=== PATIENT | female | born 1965 | race Caucasian/White ===

== ENCOUNTER 2023-05-09 14:28 | Outpatient (RCR) | payer OTHER, SELFPAY | END 2023-06-04 16:16 | disposition home or self-care (01) | LOC: PT 14:28 | PROVIDERS: PCP Physician Assistant | DX: M19.011 Primary osteoarthritis, right shoulder (principal) | CPT/HCPCS: 97010; 97014; 97110; 97140; 97162 ==

== ENCOUNTER 2023-07-30 07:12 | Outpatient (RCR) | payer OTHER, SELFPAY | END 2023-08-28 16:10 | disposition home or self-care (01) | LOC: PT 07:12 | PROVIDERS: PCP Physician Assistant | DX: M25.512 Pain in left shoulder (principal); G89.29 Other chronic pain | CPT/HCPCS: 97110; 97140; 97162 ==

== ENCOUNTER 2023-09-13 14:27 | Outpatient (OUT) | payer OTHER, SELFPAY ==
[2023-09-13 14:49] LABS: Basophils Absolute Auto 0.1 10^3/uL (0.0-0.1); Basophils Percent Auto 0.8 % (0.2-2.0); Eosinophils Absolute Auto 0.1 10^3/uL (0.0-0.7); Eosinophils Percent Auto 1.1 % (0.9-7.0); Hematocrit 42.2 % (36.0-48.0); Immature Granulocytes Abs Auto 0.07 10^3/uL (0.00-0.03); Immature Granulocytes Pct Auto 0.6 % (0.0-0.5); Lymphocytes Absolute Auto 2.7 10^3/uL (1.2-3.8); Lymphocytes Percent Auto 24.9 % (20.5-60.0); Mean Corpuscular HGB Conc 33.2 g/dL (29.9-35.2); Mean Corpuscular Hemoglobin 29.8 pg (26.7-34.0); Mean Corpuscular Volume 89.8 fL (81.0-99.0); Monocytes Absolute Auto 0.7 10^3/uL (0.3-0.8); Monocytes Percent Auto 6.1 % (1.7-12.0); Neutrophils Absolute Auto 7.3 10^3/uL (1.4-6.5); Neutrophils Percent Auto 66.5 % (43.0-75.0); Platelet Count 327 10^3/uL (150-450); Red Cell Distribution Width 11.8 % (11.0-15.0); White Blood Count 10.9 10^3/uL (4.0-11.0)
[2023-09-13 15:36] LABS: Alanine Aminotransferase 46 U/L (14-59); Albumin Globulin Ratio 1.1; Albumin Level 3.9 g/dL (3.4-5.0); Alkaline Phosphatase 68 U/L (46-116); Anion Gap 15.3; Aspartate Amino Transferase 24 U/L (15-37); BUN Creatinine Ratio 18.7; Bilirubin Total 0.6 mg/dL (0.2-1.0); Calcium 8.8 mg/dL (8.5-10.1); Carbon Dioxide 26.5 mmol/L (21.0-32.0); Chloride 103 mmol/L (98-107); Chol HDL Ratio 3.8; Cholesterol 207 mg/dL (<=200); Estimated GFR (African America >60 (>=60); Estimated GFR (Non-African Ame >60 (>=60); Globulin 3.6 g/dL; Glucose 106 mg/dL (74-106); HDL Cholesterol 54 mg/dL (40-60); Potassium 3.8 mmol/L (3.5-5.1); Sodium 141 mmol/L (136-145); Total Protein 7.5 g/dL (6.4-8.2); Triglycerides 113 mg/dL (<=150); VLDL CHOLESTEROL 22.6 mg/dL
[2023-09-13 15:37] LABS: Estimated Average Glucose 140 mg/dL; Glycohemoglobin A1C 6.5 % (4.5-6.2)
== END 2023-09-13 14:28 | disposition home or self-care (01) ==
LOC: LAB 14:30
DX: Z13.1 Encounter for screening for diabetes mellitus (principal); Z13.0 Encounter for screening for diseases of the blood and blood-forming organs and certain disorders involving the immune mechanism; Z13.6 Encounter for screening for cardiovascular disorders; Z13.220 Encounter for screening for lipoid disorders
CPT/HCPCS: 36415; 80053; 80061; 83036; 85025

== ENCOUNTER 2024-03-12 14:27 | Outpatient (OUT) | payer OTHER, SELFPAY ==
--- NOTE | 2024-03-12 14:35 | ECG_ITS ---
[facility] Test Date: 2024-03-12 Pat Name: FREDDIE ORELLANA Department: Room: - Gender: Female [employer]: : 1965 Requested By: JERRY MC Order Number: [id number] Reading MD: EBLLA NO Measurements Intervals [place] Rate: 72 P: -34 [place]: 152 QRS: -25 QRSD: 88 T: 151 QT: 381 QTc: 418 Interpretive Statements SINUS RHYTHM BORDERLINE LEFT AXIS DEVIATION [QRS AXIS < -20] ABNORMAL QRS-T ANGLE [QRS-T AXIS DIFFERENCE > 60] No previous ECG available for comparison Electronically Signed On 03-15-2024 10:44:09 EDT by BELLA NO
--- NOTE | 2024-03-12 15:07 | P.GSHP_ITS ---
History of Present Illness History of Present Illness Chief complaint: left ureteral stone Narrative: Patient presents for preadmission testing. The patient states she was diagnosed with a kidney stone in December after an episode of hematuria and flank pain. Patient states she still has intermittent flank pain but no other complaints with urination. Review of Systems ROS Narrative REVIEW OF SYSTEMS: Negative except as stated in HPI, ten or more systems reviewed. Constitutional: No fever , chills, weakness ENT: No sore throat or epistaxis Cardiovascular: No edema, chest pain, palpitations, or activity intolerance Respiratory: No shortness of breath, cough, or wheezing Musculoskeletal: No joint pain or swelling Gastrointestinal: No abdominal pain, constipation, diarrhea, or vomiting Genitourinary: No dysuria or hematuria Neurological: No numbness, tingling, weakness, or headache Psychiatric: No mood changes PFSH PFS Medical History (Updated 03/12/24 @ 14:54 by Julianna Cruz NP) Anxiety ?F41.9 - Anxiety disorder, unspecified (ICD-10) COVID-19 ?U07.1 - COVID-19 (ICD-10) Urinary tract infection ?N39.0 - Urinary tract infection, site not specified (ICD-10) Kidney stones ?N20.0 - Calculus of kidney (ICD-10) Osteoarthritis ?M19.90 - Unspecified osteoarthritis, unspecified site (ICD-10) Foot pain ?M79.673 - Pain in unspecified foot (ICD-10) Tear meniscus knee ?S83.209A - Unspecified tear of unspecified meniscus, current injury, unspecified knee, initial encounter (ICD-10) Irregular heart beat ?I49.9 - Cardiac arrhythmia, unspecified (ICD-10) Elevated blood pressure reading without diagnosis of hypertension ?R03.0 - Elevated blood-pressure reading, without diagnosis of hypertension (ICD-10) Hematuria ?R31.9 - Hematuria, unspecified (ICD-10) Flank pain ?R10.9 - Unspecified abdominal pain (ICD-10) Hydronephrosis ?N13.30 - Unspecified hydronephrosis (ICD-10) Ureteral stone ?N20.1 - Calculus of ureter (ICD-10) Surgical History (Updated 03/12/24 @ 14:54 by Julianna Cruz NP) History of colonoscopy ?Z98.890 - Other specified postprocedural states (ICD-10) History of cholecystectomy ?Z90.49 - Acquired absence of other specified parts of digestive tract (ICD- 10) History of bilateral oophorectomy ?Z90.722 - Acquired absence of ovaries, bilateral (ICD-10) History of hysterectomy ?Z90.710 - Acquired absence of both cervix and uterus (ICD-10) Family History (Updated 03/12/24 @ 14:54 by Julianna Cruz NP) Other Family history of diabetes mellitus Family history of hypertension Family history of myocardial infarction Family history of ovarian cancer Social History (Updated 03/12/24 @ 14:46 by Julianna Cruz NP) Within the past year, how often did you have a drink containing alcohol: never Score interpretation: A score less than 3 is consistent with normal alcohol consumption. Smoking status: Never smoker Non-prescribed substance use: denies use Previous occupational history: Delivery Highest level of school completed/degree received: high school graduate Meds Home Medications and Allergies Allergies Allergy/AdvReac Type Severity Reaction Status Date / Time sulfamethoxazole Allergy Rash Verified 03/12/24 14:45 [From Bactrim] trimethoprim [From Bactrim] Allergy Rash Verified 03/12/24 14:45 Exam Narrative Exam Narrative: Constitutional: Awake, alert, comfortable, well-appearing, nontoxic, interactive, vital signs as charted Head: Normocephalic, atraumatic Neck: Supple, normal appearance, normal range of motion, no meningeal signs, no lymphadenopathy Respiratory: No respiratory distress, breath sounds clear Cardiovascular: Regular rate and rhythm, strong and regular heart tones Abdomen: Nontender, normal bowel sounds, soft, no CVA tenderness Musculoskeletal: Normal gait, no swelling or edema Skin: No rashes or induration, no lesions, only visible skin inspected Neuro: No neurological deficits, normal sensation Psychiatric: Oriented ?3, normal affect Assessment and Plan Assessment and Plan (1) Kidney stones: (2) Ureteral stone: (3) Hydronephrosis: Plan Cystoscopy, left retrograde, left ureteroscopy, holmium laser, possible left stent placement scheduled with Dr. Colbert 03/26/2024.
--- OUTSIDE RECORDS SUMMARY | 2024-03-12 15:09 | XMS_ITS | CCD ---
Author Organization [facility] Care Team Providers Care Security Investigator Name Role Phone CECE CHRISTINA Primary Care Physician [phone] Joby Sharma Unavailable CECE CHRISTINA Primary Care Physician LUCY BECKETT Admitting Unavailable LUCY BECKETT Attending Unavailable Unavailable Primary Care Provider UnavailANDERSON Araujo Attending Unavailable ANTONIO CARPENTER Referring Unavailable BRANDON AU Referring Unavailable JEANNA CAI Attending Unavaila CECE Chang Primary Care Unavailable CECE CHRISTINA Referring Unavailable CECE CHRISTINA Primary Care Unavailable BRANDON AU Attending Unavailable CECE CHRISTINA Primary Care Unavailable NICOLÁS LATIF Attending Unavailable Keke Romero MD Primary Care Provider MEET ROCK Attending Unavailable DAYANNA SAEZ Attending Unavailable CECE CHRISTINA Attending Unavailable DAYANNA SAEZ Referring Unavailable WILBER CUELLAR Attending Unavailable MARCUS HERBERT Attending Unavailab MEET Castro Attending Unavailable KIMBERLY MCWILLIAMS Referring Unavailable KIMBERLY MCWILLIAMS Referring Unavailable Guadalupe Mcdowell Attending Unavailable DAYANNA SAEZ Referring Unavailable Meet [place] Referring Unavailable Meet [place] Attending Unavailable Meet [place] Admitting Unavailable Lance COLBERT Attending Unavailable Allergies Allergy Classification Reported Allergen(s) Allergy Type Date of Onset Reaction(s) Facility (13 sources) Sulfamethoxazole / Trimethoprim; Translations: [sulfamethoxazole-t rimethoprim] Drug Allergy 03-07-20 Urticaria (disorder), hives, Other: See Comments [facility] Other (5 sources) Penicillins; Translations: [PENICILLINS] Drug Allergy 03-07-20 [facility] (7 sources) Sulfonamides (Antibiotic); Translations: [SULFA (SULFONAMIDE ANTIBIOTICS)] Drug Allergy 03-07-20 [facility] (2 sources) Sulfamethoxazole / Trimethoprim; Translations: [SULFAMETHOXAZOLE-T RIMETHOPRIM] Drug Allergy 03-07-20 [facility] Repository (1 source) Unable to obtain; Translations: [Unable to obtain] Propensity to adverse reactions (disorder) [facility] Repository Medications Current Medications Medication Drug Class(es) Dates Sig (Normalized) Sig (Original) Naproxen (4 sources) Nonsteroidal Anti-inflammatory Drug Naproxen Active tamsulosin hydrochloride 0.4 mg oral capsule (2 sources) alpha-Adrenergic Polo Start: 01-31-2024 End: 02-14-2024 take 1 capsule by mouth twice daily tamsulosin 0.4 mg Cap 0.4 mg = 1 cap(s), Oral, BID, X 14 day(s), # 28 cap(s), Refills(s) 0, Pharmacy: [facility]/pharmacy #[id number], 165, cm, 01/31/24 10:31:00 EDT, Height/Length Dosing, 89.5, kg, 01/31/24 10:31:00 EDT, Weight Dosing Start Date: 01/31/24 Stop Date: 02/14/24 Status: Ordered Start: 12-24-2023 End: 01-03-2024 take 1 capsule by mouth every twenty-four hours in the morning tamsulosin (Flomax) 0.4 MG 24 hr capsule Indications: Left renal stone Take 1 capsule (0.4 mg) by mouth in the morning for 10 days. 10 capsule 0 12/24/2023 01/03/2024 Active Completed/Discontinued Medications Medication Drug Class(es) Dates Sig (Normalized) Sig (Original) betamethasone 3 mg/ml / betamethasone acetate 3 mg/ml injectable suspension (1 source) Corticosteroid Start: 03-07-2023 End: 03-07-2023 betamethasone acetate-betamethason e sodium phosphate 6 mg injection (CELESTONE) Start: 03-07-2023 End: 03-07-2023 betamethasone acetate-betame thasone sodium phosphate 6 mg injection (CELESTONE) 10 ml lidocaine hydrochloride 10 mg/ml injection (1 source) Antiarrhythmic, Amide Local Anesthetic Start: 03-07-2023 End: 03-07-2023 lidocaine (PF) 10 mg/mL (1 %) 1 mL injection (XYLOCAINE) Start: 03-07-2023 End: 03-07-2023 lidocaine (PF) 10 mg/mL (1 % ) 1 mL injection (XYLOCAINE) Problems Active Problems Problem Classification Problem Date Documented Da te Episodic/Chronic Abdominal pain (1 source) Left flank pain 01-24-2024 Episodic Calculus of urinary tract (1 source) Kidney stone; Translations: [Calculus of kidney] 12-24-2023 Episodic Genitourinary symptoms and ill-defined conditions (1 source) Blood in urine 01-24-2024 Episodic Joint disorders and dislocations; trauma-related (5 sources) Derangement of left knee; Translations: [Unspecified internal derangement of left knee] Chronic Osteoarthritis (7 sources) Unilateral primary osteoarthritis, left knee; Translations: [Osteoarthritis of left knee joint] Onset: 10-01-2022 Chronic Other connective tissue disease (1 source) Mass of knee; Translations: [Other specified soft tissue disorders] Episodic Other diseases of kidney and ureters (1 source) Urinary tract obstruction; Translations: [Hydronephrosis with renal and ureteral calculous obstruction] Onset: 01-31-2024 Episodic Other ear and sense organ disorders (1 source) Otalgia, left ear; Translations: [Left ear pain] Onset: 11-11-2023 Episodic Other injuries and conditions due to external causes (1 source) Foreign body in left ear, initial encounter; Translations: [Foreign body of left ear, initial encounter] Onset: 11-11-2023 Episodic Other non-traumatic joint disorders (1 source) Stiffness of left shoulder; Translations: [Stiffness of left shoulder, not elsewhere classified] Episodic Other upper respiratory disease (4 sources) Rhinitis; Translations: [Chronic rhinitis] Chronic Residual codes; unclassified (2 sources) Pain; Translations: [Pain, unspecified] Episodic Unclassified (1 source) Positive ROSAS Onset: 11-05-2023 Past or Other Problems Problem Classification Problem Date Documented Da te Episodic/Chronic Joint disorders and dislocations; trauma-related (1 source) Other tear of lateral meniscus, current injury, left knee, initial encounter Onset: 12-07-2021 Resolved: 12-07-2021 Episodic Other connective tissue disease (1 source) Synovial cyst of popliteal space [Haley], left knee Onset: 12-07-2021 Resolved: 12-07-2021 Episodic Residual codes; unclassified (1 source) Pain, unspecified; Translations: [Pain] Onset: 03-07-2023 Episodic Results Test Name Value Interpretation Reference Range Facility Consent for Procedure/Surger yon 02-21-2024 Consent for Procedure/Surgery [id number] 0TIFF [facility] Provider Letteron 02-06-2024 Provider Letter February 06, 2024 EMELY ROBLES [address] [place] [id number] : 1965 Dear Emely Robles , We have been trying to reach you with no success. It is important that you return our call regarding your ureteral stone upon receiving this letter. Also, at the time of your call, please provide us with your current information. Dr. Colbert would like to evaluate you and possible schedule you for stone surgery if you are unable to pass the ureteral stone. Please call the office as soon as possible to schedule an appointment. Thank you for your prompt attention to this matter. Sincerely, [facility] [place] [facility] Ambulatory Visit Summaryon 0 01-31-2024 Ambulatory Visit Summary EMELY ROBLES :1965 Visit Date:01/31/2024 Ambulatory Visit Instructions Your Diagnosis Ureteral stone with hydronephrosis Your Care Team Attending Physician - CARMELA Mcdowell APRN, Guadalupe Lea Primary Care Physician - CECE CHRISTINA CNP Referring Physician - DAYANNA SAEZ CNP This Is Your Medications List tamsulosin (tamsulosin 0.4 mg Cap) Procedures Performed Abdominal hysterectomy, Cholecystectomy, Colonoscopy. Discharge Vitals Temperature (Temporal Artery) 37.0 ?C Heart Rate (Peripheral) 76 Respiratory Rate 16 Blood Pressure 137/84 Height 165 cm Height 65 in Weight 89.5 kg Weight 196.9 lb BMI 32.87 Medications What How Much When Why Instructions New tamsulosin (tamsulosin 0.4 mg Cap) 1 Capsules By Mouth 2 times a day Ureteral stone with hydronephrosis Duration: 14 Days Pickup at [facility]/pharmacy #[id number] Pharmacy Information [facility]/pharmacy #[id number]: [address], [place] [id number] [phone] Allergies Bactrim (Hives) Problems Ongoing - Any problem that you are currently receiving treatment for. Acute left flank pain Hematuria, unspecified Patient Survey You may receive a survey via text or e-mail asking about your office visit. Please share your experience with us by completing your survey. We appreciate your feedback and thank you for choosing us for your care. [facility] Formson 01-31-2024 Forms [id number] 0TIFF [facility] Patient Educationon 01-31-20 24 Patient Education Nephrology Dietary Guidelines to Help Prevent Kidney Stones Kidney stones are deposits of minerals and salts that form inside your kidneys. Your risk of developing kidney stones may be greater depending on your diet, your lifestyle, the medicines you take, and whether you have certain medical conditions. Most people can lower their risks of developing kidney stones by following these dietary guidelines. Your dietitian may give you more specific instructions depending on your overall health and the type of kidney stones you tend to develop. What are tips for following this plan? Reading food labels ? Choose foods with no salt added or low-salt labels. Limit your salt (sodium) intake to less than 1,500 mg a day. ? Choose foods with calcium for each meal and snack. Try to eat about 300 mg of calcium at each meal. Foods that contain 200?500 mg of calcium a serving include: ? 8 oz (237 mL) of milk, tzywsks-otjvtgibzdee-k airy milk, and calcium-fortifiedfruit juice. Calcium-fortified means that calcium has been added to these drinks. ? 8 oz (237 mL) of kefir, yogurt, and soy yogurt. ? 4 oz (114 g) of tofu. ? 1 oz (28 g) of cheese. ? 1 cup (150 g) of dried figs. ? 1 cup (91 g) of cooked broccoli. ? One 3 oz (85 g) can of sardines or mackerel. Most people need 1,000?1,500 mg of calcium a day. Talk to your dietitian about how much calcium is recommended for you. Shopping ? Buy plenty of fresh fruits and vegetables. Most people do not need to avoid fruits and vegetables, even if these foods contain nutrients that may contribute to kidney stones. ? When shopping for convenience foods, choose: ? Whole pieces of fruit. ? Pre-made salads with dressing on the side. ? Low-fat fruit and yogurt smoothies. ? Avoid buying frozen meals or prepared deli foods. These can be high in sodium. ? Look for foods with live cultures, such as yogurt and kefir. ? Choose high-fiber grains, such as whole-wheat breads, oat bran, and wheat cereals. Cooking ? Do not add salt to food when cooking. Place a salt shaker on the table and allow each person to add their own salt to taste. ? Use vegetable protein, such as beans, textured vegetable protein (TVP), or tofu, instead of meat in pasta, casseroles, and soups. Meal planning ? Eat less salt, if told by your dietitian. To do this: ? Avoid eating processed or pre-made food. ? Avoid eating fast food. ? Eat less animal protein, including cheese, meat, poultry, or fish, if told by your dietitian. To do this: ? Limit the number of times you have meat, poultry, fish, or cheese each week. Eat a diet free of meat at least 2 days a week. ? Eat only one serving each day of meat, poultry, fish, or seafood. ? When you prepare animal proteins, cut pieces into small portion sizes. For most meat and fish, one serving is about the size of the palm of your hand. ? Eat at least five servings of fresh fruits and vegetables each day. To do this: ? Keep fruits and vegetables on hand for snacks. ? Eat one piece of fruit or a handful of berries with breakfast. ? Have a salad and fruit at lunch. ? Have two kinds of vegetables at dinner. ? You may be told to limit foods that are high in a substance called oxalate. These include: ? Spinach (cooked), rhubarb, beets, sweet potatoes, and [place] Zealander chard. ? Peanuts. ? Potato chips, bhutanese fries, and baked potatoes with skin on. ? Nuts and nut products. ? Chocolate. ? If you regularly take a diuretic medicine, make sure to eat at least 1 or 2 servings of fruits or vegetables that are high in potassium each day. These include: ? Avocado. ? Banana. ? Union, prune, carrot, or tomato juice. ? Baked potato. ? Cabbage. ? Beans and split peas. Lifestyle ? Drink enough fluid to keep your urine pale yellow. This is the most important thing you can do. Spread your fluid intake throughout the day. ? If you drink alcohol: ? Limit how much you have to: ? 0?1 drink a day for women who are not . ? 0?2 drinks a day for men. ? Know how much alcohol is in your drink. In the [place] one drink equals one 12 oz bottle of beer (355 mL), one 5 oz glass of wine (148 mL), or one 1? oz glass of hard liquor (44 mL). ? Lose weight if told by your health care provider. Work with your dietitian to find an eating plan and weight loss strategies that work best for you. General information ? Talk to your health care provider and dietitian about taking daily supplements. Depending on your health and the cause of your kidney stones, you may be told: ? Do not take high-dose supplements of vitamin C (1,000 mg a day or more). ? To take a calcium supplement. ? To take a daily probiotic supplement. ? To take other supplements such as magnesium, fish oil, or vitamin B6. ? Take yttl-qib-qwprrfv and prescription medicines only as told by your health care provider. These include supplements. What foods sh (more content not included)... Normal [facility] Physician Referralon 024 Physician Referral [id number] 0TIFF Normal [facility] RAD - CT Reporton 01-31-2024 RAD - CT Report [id number]. 00TIFF Normal [facility] RAD - MISCon 01-31-2024 RAD - MISC [id number]. 00TIFF Normal [facility] RAD - Ultrasound Reporton RAD - Ultrasound Report [id number] 0TIFF Normal [facility] Urology Office/Clinic Noteon 01-31-2024 Urology Office/Clinic Note Chief Complaint New pt referred by Dayanna Saez for left renal stone HPI Staff Emely is a 58 y.o. female new patient here for left ureteral stone. Referred by Dayanna Saez. Pt presented to [facility] urgent care on 12/13/23 due to left side back/groin pain. UA done on 12/13/23 was negative for blood and infection. CT done on 12/13/23. Dysuria: denies Incomplete bladder emptying: denies Hematuria: yes last time seen was 01/22 Frequency: yes Urgency: yes Nocturia: 1x a night Stream: strong and steady Leaking: denies Post void dripping: denies Wearing pads/ Depends: denies Urge incontinence: occasionally Stress incontinence: denies Incontinence without Sensory Awareness: denies Abdominal pain: denies Flank pain: denies Sexual complaints: _ History of Present Illness I have reviewed and verified the staff HPI to be accurate for this encounter. Portions of this record may have been created with voice recognition artificial intelligence software, specifically [employer], [employer] and or [employer]. Substitutions may have occurred due to the inherent limitations of voice recognition and artificial intelligence software. Review of Systems PHQ Score Initial Depression Screen Score: 0 SCORE Physical Exam Vitals & Measurements T: 37.0 ?C(Temporal Artery) HR: 76(Peripheral) RR: 16 BP: 137/84 HT: 65 in HT: 165 cm WT: 89.5 kg WT: 196.9 lb BMI: 32.87 General: Well developed, well nourished, in no acute distress. Genitourinary: Flank Pain: none. Bladder: nonpalpable. Assessment/Plan Completed review of outside notes, imaging. 1. Ureteral stone with hydronephrosis (N13.2: Hydronephrosis with renal and ureteral calculous obstruction) [facility] 12/13/2023 -intermittent left flank pain that radiates to the left groin pain x 6 days, occasional gross hematuria CTAP without con 12/13/2019 4-5 mm calculus within the left mid ureter. Associated upstream left mild hydronephrosis. No other distinct renal or ureteral calculi. KUB 01/28/2024-calcificati on within the left pelvis, slightly lateral to the left sacrum, and could possibly represent the prior calculus on the CT from previously. If so, there is interval distal migration. R US 01/28/2024-mild hydronephrosis of the left kidney UA today without signs of blood or infection. She does admit to some frequency and urgency at this time. She last saw gross hematuria on 01/23/2024. She reports mild intermittent left flank pain. No flank or abdominal pain to palpation or percussion. Discussed with patient imaging results. Patient expresses interest in conservative management with medical expulsive therapy. However, discussed concern for length of time that stone has been in ureter causing kidney damage related to obstruction. Will schedule Laser Litho. The procedural risks, benefits, details, and treatment alternatives have been discussed with the patient. These include bleeding, infection, inability to break or retrieve all of the stone, injury to the ureter (the tube which connects the kidney to the bladder), injury to the kidney scarring of the ureter, and need for repeat procedures, among others. Will order General anesthesia. Will send Rx for tamsulosin 0.4 mg twice daily in the meantime. Discussed possible side effects. Patient may decrease to once daily dosing if experiencing any intolerable side effects. Rx sent to [facility]. Patient to strain all urine until procedure. Increase fluid intake, avoid bladder irritants ER for fever, NV, severe flank pain, inability to urinate Patient verbalizes understanding. - Schedule laser lithotripsy of distal ureteral stone, follow-up pending procedure. Ordered: tamsulosin, 0.4 mg = 1 cap(s), Oral, BID, X 14 day(s), # 28 cap(s), Refills(s) 0, Pharmacy: [facility]/pharmacy #[id number], 165, cm, 01/31/24 10:31:00 EDT, Height/Length Dosing, 89.5, kg, 01/31/24 10:31:00 EDT, Weight Dosing Orders: Urnls Dip Stick Auto w/o Microscopy POC [id number] Follow-up No qualifying data available Patient Education Urinary Obstruction, Pediatric Hydronephrosis Dietary Guidelines to Help Prevent Kidney Stones Problem List/Past Medical History Ongoing Acute left flank pain Hematuria, unspecified Historical No qualifying data Procedure/Surgical History Abdominal hysterectomy, Cholecystectomy, Colonoscopy. Medications tamsulosin 0.4 mg Cap, 0.4 mg= 1 cap(s), Oral, BID Allergies Bactrim (Hives) Social History Tobacco Never (less than 100 in lifetime) Tobacco Use:. Never Smokeless Tobacco Use:. Household tobacco concerns: No. Yes, 01/31/2024 Family History Arthritis: Father. Hypertension: Father. Ovarian cancer: Mother. Immunizations Vaccine Date Status SARS-CoV-2 (COVID-19) mRNA-1273 vaccine 02/21/2021 Recorded SARS-CoV-2 (COVID-19) mRNA-1273 vaccine 01/24/2021 Recorded influenza virus vaccine, inactivated 08/30/2019 Recorded influenza virus vaccine, inactivated 09/10 (more content not included)... Normal [facility] Comment on above: Result Comment: Elec tronically Signed By: CARMELA Mcdowell APRN, [place] X\.br\Date and Time Signed: 01/31/24 12:06 EDT US RENAL COMPLETEon 01-28-20 US RENAL COMPLETE US RENAL COMPLETE History: Calculus of ureter. Technique: Sonography of the kidneys and bladder was performed. Comparison: Radiographs 01/28/2024. CT 12/23/2023. Result: Limitations from patient body habitus. Right Kidney: -Renal length: 9.8 cm. -Parenchyma: Normal echogenicity and normal thickness. -Collecting System: No hydronephrosis. -Calculus: No echogenic, shadowing calculus. -Lesion: None. Left Kidney: -Renal length: 9.5 cm. -Parenchyma: Normal echogenicity and normal thickness. -Collecting System: Mild hydronephrosis. -Calculus: No echogenic, shadowing calculus. -Lesion: None. Bladder: -Prevoid volume of 503.9 ml. -Postvoid volume of 52.4 ml, for postvoid residual of 10%. Left ureteral jet not visualized. Right jet visualized. -No bladder wall thickening. IMPRESSION: Impression: Mild left hydronephrosis. ELECTRONICALLY SIGNED BY: Remington Mayfield MD Normal Not Available XR ABDOMEN 1 VIEWon 01-28-20 24 XR ABDOMEN 1 VIEW EXAMINATION/TECHNIQU E: XR ABDOMEN 1 VIEW HISTORY: Kidney stone(s). COMPARISON: CT 12/23/2023. RESULT: Calcification within the left pelvis, slightly lateral to the left sacrum, and could possibly represent the prior calculus on the CT from 12/23/2023, and if so, there is interval distal migration. Otherwise no distinct urinary tract calcifications radiographically. Nonspecific nondilated bowel gas pattern. Lung bases unremarkable. No acute osseous findings. Degenerative changes. Surgical clips right upper quadrant. IMPRESSION: Left-sided calcification as discussed. ELECTRONICALLY SIGNED BY: Remington Mayfield MD Normal Not Available Physician Orderon 12-30-2023 Physician Order [id number] 0TIFF Normal [facility] CT ABDOMEN PELVIS WO IV CONT RASTon 12-13-2023 CT ABDOMEN PELVIS WO IV CONTRAST EXAMINATION: CT ABDOMEN PELVIS WO IV CONTRAST HISTORY: left flank pain radiating to groin. Comes in waves with nausea. Rule out renal stone. TECHNIQUE: Non-IV contrast imaging of the abdomen and pelvis was performed using standard technique, scanning from just above the dome of the diaphragm to the symphysis pubis. Unenhanced imaging is limited for the evaluation of some intra-abdominal and pelvic pathology. All CT scans at this facility use dose modulation, iterative reconstruction, and/or weight based dosing when appropriate to reduce radiation dose to as low as reasonably achievable. COMPARISON: None. RESULT: Abdomen / Pelvis: Liver: No suspicious lesions in the unenhanced liver. Biliary: Cholecystectomy. Pancreas: Unremarkable. Spleen: No splenomegaly. Adrenals: No mass. Kidneys: 5 mm calculus within the left mid ureter. Associated upstream mild left hydroureteronephrosis. No other distinct renal or ureteral calculi. No suspicious lesions in the unenhanced kidneys. GI Tract: No bowel dilation. Normal appendix. Diverticulosis without diverticulitis. Lymph Nodes: No lymphadenopathy. Mesentery/peritoneum/r etroperitoneum: No ascites or mass. Vasculature: Mild arterial atherosclerotic disease without aneurysm. Pelvis: No significant free fluid. Bladder decompressed. Bones/Soft Tissues: No acute osseous findings. Degenerative changes. Lower thorax: Granulomatous calcifications right hilar region. Otherwise unremarkable. IMPRESSION: Mildly obstructing 5 mm calculus in the left mid ureter. ELECTRONICALLY SIGNED BY: Remington Mayfield MD Normal Not Available ED NOTEon 11-11-2023 ED NOTE HNO ID: [id number] Author: Jael Sutton RN Service: Nursing Author Type: Registered Nurse Type: ED Notes Filed: 11/11/2023 3:28 PM Note Text: PT did not wait for D/C paperwork and this RN did not see PT depart ED. [facility] ED NOTE HNO ID: [id number] Author: Jael Sutton RN Service: Nursing Author Type: Registered Nurse Type: ED Notes Filed: 11/11/2023 2:41 PM Note Text: PT arrives with C/o Left ear pain. Per triage Doctor; Cotton swab stuck in ear. Dr. Jenkins in triage bay to irrigate ear. [facility] ED PROV NOTEon 11-11-2023 ED PROV NOTE HNO ID: [id number] Author: Nicolás Latif DO Service: Emergency Medicine Author Type: Physician Type: ED Provider Notes Filed: 11/11/2023 2:54 PM Note Text: ED Provider Note Patient Name: Emely Robles : 1965 SERVICE DATE: 11/11/23 History Patient presents with: Ear Pain: Cotton swab stuck in L ear Emely Robles is a 58 year old female who presents with ear pain Location: left Duration: prior to arrival Timing: constant Context: cotton swab stuck in ear No past medical history on file. No past surgical history on file. No family history on file. Social History Tobacco Use Smoking status: Not on file Smokeless tobacco: Not on file Substance and Sexual Activity Alcohol use: Not on file Drug use: Not on file Sexual activity: Not on file ALLERGIES Allergen Reactions Penicillins Hives Sulfa (Sulfonamide * Hives Sulfamethoxazole-Tr* Hives, Other: See Comments Review of Systems HENT: Positive for ear pain. All other systems reviewed and are negative. Physical Exam Vitals [11/11/23 1437] BP Pulse Temp Temp src Resp SpO2 Weight Height 146/79 81 37.3 ?C (99.1 ?F) Oral 17 98 % -- -- Physical Exam Vitals and nursing note reviewed. Constitutional: Appearance: Normal appearance. HENT: Head: Normocephalic and atraumatic. Ears: Comments: Cotton swab in L ear Pulmonary: Effort: Pulmonary effort is normal. No respiratory distress. Neurological: General: No focal deficit present. Mental Status: She is alert. Psychiatric: Behavior: Behavior normal. Diagnostic Testing ED Labs Ordered and Reviewed - No data to display Procedures ED Course / Clinical Impression Clinical Impressions as of 11/11/23 1445 Left ear pain Foreign body of left ear, initial encounter MDM / Disposition / Plan Cotton swab extracted with alligator forceps Differential Diagnoses - Ear foreign body Disposition The patient was discharged. Counseled patient regarding suspected diagnosis. SIGNATURE: DO Girish Leija GLENN 11/11/23 1454 [facility] Office Visit (AMINATA ) EMELY ROBLES ([id number]) 1965 F Date Time Provider Department 11/05/23 9:00 AM JEANNA CAI During your visit today, we recorded the following information about you: Pulse Blood pressure Weight 84/minute 128/64 90.7 kg Jeanna Cai MD 11/05/2023 10:00 AM Signed [facility]ology [facility] Date of Service: 11/05/2023 Patient: Emely Robles Medical Record: [id number] Last Rheumatology visit: None at [facility] History of Present Illness Emely Robles is a 58 year old White female who presents on 11/05/2023 for an in-person visit for evaluation of Positive ROSAS. HISTORY OF PRESENT ILLNESS 58 year old female who presents for evaluation of positive ROSAS. Past medical history: primary osteoarthritis of the left foot, HLD, anxiety, left meniscal tear (10/26) Past surgical history: bilateral oopherectomy (mother with h/o ovarian cancer), cholecystecomy Notes unclear family history of lupus. Notes her maternal aunt MAY have had lupus. The family is unsure. Has joint pain in her left shoulder, left knee and left foot. 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 Notes she is supposed to get her meniscus repaired but there is no one at work that can cover so she cancelled her surgery. Ongoing knee pain. Has gotten 3 opinions on her knee she reports. She describes inflammation that keeps her from sleeping. The shoulder bothers her. She completed left shoulder PT and CSI in February 2023. This helped her pain. However, notes she has been working a lot and pain has been returning. Was unable to complete PT since she cannot find people to cover. Sleeping at night was painful. She is seeing ophthalmology for floaters. ROSAS found to be 1:40, cytoplasmic pattern on 10/01/23. MRI Foot 09/12/23: No fracture. Mild degenerative changes of the midfoot. Achilles intact. Plantar fascia intact. XR Hip 07/13/23: overall report is normal. ROS: Has rash near her scalp along with forehead. ?seborrheic dermatitis No blood clots No raynauds No pericarditis or pleuritis Recent holter monitor for palpitations +dry eyes 5-6 years old No malar or discoid rash No alopecia Elevated A1C 6.5 09/13/23 No renal disease Patient-Entered Data PROMIS Assessments No flowsheet data found.No flowsheet data found.No flowsheet data found.No flowsheet data found. RAPID 3 [place] Activities of Daily Living No Data Dress self? - Get in and out of bed? - Walk outdoors? - Wash and dry body? - Get in and out of car? - RAPID 3 Disease Activity Weighed Score Levels: 0 - 1: Near Remission 1.3 - 2.0: Low Severity 2.3 - 4.0: Moderate Severity 4.3 - 10.0: High Severity No flowsheet data found. Patient Health Questionnaire (PHQ-9) No flowsheet data found.(0-4) minimal depression, (5-9) mild depression, (10-14) moderate depression, (15-19) moderately severe depression, (20-27) severe depression Review of Systems ROS RHEUMATOLOGYAll other reviewed and negative other than HPI. Current Medications No current outpatient medications on file prior to visit. No current facility-administered medications on file prior to visit. Labs ROSAS 1:40 CBC overall unremarkable BMP normal Imaging MRI Foot 09/12/23: No fracture. Mild degenerative changes of the midfoot. Achilles intact. Plantar fascia intact. XR Hip 07/13/23: overall report is normal. Physical Exam BP 128/64 Pulse 84 Wt 199 lb 15.3 oz (90.7kg) Exam: GENERAL: Well appearing HEENT: NCAT, PERRLA, EOMI, no scleral icterus, oropharynx clear and without lesions/ulcers. GI: NABS, soft, nondistended SKIN: Warm, dry, no significant rashes, no significant bruising. NEURO: AANDOx3. Mental status and speech normal. MSK: Shoulders: decreased abduction of the left shoulder. No appreciable swelling or tenderness with palpation. Elbows: No flexion contractures. No appreciable swelling, deformities, or tenderness with palpation. Wrists: No limitation of flexion or extension. No appreciable swelling or tenderness with palpation. Hands: No evidence of synovitis or tenderness with palpation. Able to make full fist bilaterally. Knees: No gross deformity. No appreciable effusion. Ankles: No limitation of plantarflexion or dorsiflexion Feet: No evidence of synovitis Impression and Plan Diagnoses: (R76.8) Positive ROSAS (antinuclear antibody) (primary encounter diagnosis) 58 year old female who presents for evaluation of positive ROSAS. ROSAS was collected in the setting of joint pain. She has history of left shoulder pain, left knee and left foot pain for a few years. MRI of foot shows degenerative changes. She has left knee meniscal injury per patient and was recommended to have surgery. Seen by orthopedics and diagnosed with AC joint arthritis and shoulder sti (more content not included)... Normal [facility] Consent for Treatmenton Consent for Treatment [id number] 0TIFF Normal [facility] MRI Foot w/o Contrast Lefton 09-12-2023 MRI Foot w/o Contrast Left Exam Date/Time: 09/12/2023 08:02 EDT Reason for Exam: M72.2, M79.672 Report IMPRESSION: NO ACUTE OSSEOUS OR SOFT TISSUE ABNORMALITY. MILD DEGENERATIVE CHANGES OF THE MIDFOOT. EXAM: MRI Foot w/o Contrast Left HISTORY: Foot pain COMPARISON : None available TECHNIQUE: Multiplanar multisequence MRI of the foot was performed without contrast. FINDINGS: No evidence of recent fracture or stress reaction. Mild degenerative changes of the midfoot. Achilles tendon is intact. Plantar fascia is intact. Flexor and extensor tendons are within normal limits. Lisfranc ligament is intact. Sinus tarsi fat is preserved. Ordering Provider: [place] FINAL REPORT Dictated: 09/12/2023 1:33 pm Adarsh Alas DO Signed (Electronic Signature): 09/12/2023 1:33 pm Signed by: Adarsh Alas DO Transcribed by: STEFANIE Technologist: THEODORE Technical Comments None Normal [facility] RAD - MRI Screening Formon 1 11-12-2022 RAD - MRI Screening Form [id number] 0TIFF Normal [facility] Physician Orderon 09-04-2023 Physician Order [id number] TIFF Normal [facility] US Lower Extremity, Non-Vasc ular, Lefton 03-11-2023 US Lower Extremity, Non-Vascular, Left HISTORY: Left thigh lump for 2 months. TECHNIQUE: Grayscale and power Doppler ultrasound imaging was performed in the area of concern and images were saved to the permanent image archive. COMPARISON: None. RESULT: Corresponding to the area of concern, there is a lobular lesion measuring 1.7 x 0.8 x 1.9 cm with echogenicity similar to fat, suggestive of lipoma. No associated internal vascularity or posterior shadowing. IMPRESSION: Lipoma at the area of concern. Report reported and signed by Remington Mayfield on 03/12/2023 0944 Normal [facility] Manager [employer] Services CNOVon 03-07-2023 [facility] Office Visit (ORHSMN ) EMELY ROBLES ([id number]) 1965 F Date Time Provider Department 03/07/23 10:20 AM BRANDON AU During your visit today, we recorded the following information about you: Brandon Au MD 03/07/2023 2:58 PM Signed NEW PATIENT NOTE Brandon Au MD,PhD Orthopaedic Surgery [address] [place] [address] OFFICE PHONE [phone], FAX [phone] Referring MD:No referring provider defined for this encounter. Phone: N/A Fax: TYPE OF VISIT:New Patient and Outpatient Consult Date of Service:March 07, 2023 CC: left shoulder pain PATIENT INFO: Ms. Emely Robles 58 year old female HISTORY HPI: is a(n) 58 year old, right handed, female with no PMH who presented here with a chief complaint of left shoulder pain. Onset of symptoms has been gradual started approximately a couple months ago without inciting events. 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 She describes constant, sharp, achy, and dull pain, located in the left shoulder top and around the left scapula. Pain intensity: mild to moderate. Pain is exacerbated by left shoulder extension, lifting, reaching, and twisting; reduced by Heat or Ice. Patient denies fever, night pain, denies unintentional weight loss, denies clumsiness of hands, feet, or dropping things. Denies any constitutional symptomatology. Denies any injuries in her left shoulder. She also has tingling around the left scapula and posterior aspect of the neck. She also mentioned she has occasional left hand cramping, which started about 3 months ago. Pain: 5 Location of pain: left shoulder Pain at rest: 2 Numbness/Paresthesias: no Locking: No Clicking AND catching: No Instability: Yes Prior treatment: none Prior surgical treatments: none OCCUPATION/AVOCATION : mailing manager. Hobbies: Yardwork. ASSESMENT/PLAN IMPRESSION: M19.012 Arthritis of left acromioclavicular joint (primary encounter diagnosis) M25.612 Shoulder stiffness, left PLAN: 1. Medications: None 2. Further tests, imaging, referrals: None 3. Intervention:The patient and I had a long discussion about treatment options including the conservative and operative managements for the left shoulder. I explained that treatment for this problem is non-operative, and the options include anti-inflammatory medications, steroid injection and a physical/occupational therapy program. The expected course of the treatment was outlined, and the patient understood and agreed with the plan. The patient has left AC arthritis with left shoulder mild stiffness. It may affect around shoulder girdle muscles and cause pain. In addition to the comprehensive evaluation, assessment and plan outlined above, and as a distinct and separate element to the visit today, we have made the determination to proceed with an injection to aid in the management of the patient's condition. We discussed the risks, benefits, alternatives and expected outcomes of this injection in detail, and the patient agreed to proceed. The procedure was performed as detailed below. Medium Joint Arthro/Inj: L AC Informed Consent Consent Obtained: Verbal [place] Protocol A moment to CARE was completed. SIGN IN Personnel directly involved with the procedure wore the appropriate PPE. Special Equipment: N/A Patient/Surrogate Stated/Verified: Patient name, Date of , Relevant allergies and Intended procedure TIME OUT Intended patient and procedure match the source document(s). Consent documented and matches the intended procedure. Relevant labs, photos, and/or imaging studies have been reviewed. Correct side/site marked and visible. Medications required for procedure verified. No fire risk assessment and interventions applicable. No implant(s) inserted. 03/07/2023 2:53 PM The procedure site was prepped in the usual sterile fashion. Medications: 6 mg betamethasone acetate-betamethasone sodium phosphate 6 mg/mL Anesthetics: 1 mL lidocaine (PF) 10 mg/mL (1 %) Outcome: tolerated well, no immediate complications Post-injection instructions were reviewed with the patient and the patient voiced understanding of these instructions. SIGN OUT No instruments, equipment or retained foreign bodies applicable. After injection, improving arm cross and left shoulder extension pain. IR is about L4. 4. Follow-up: Follow up will be in 6 weeks for a repeat clinical exam. No x-rays will be needed at that time, unless symptoms have changed. If there are any other questions or problems, the patient was instructed to call the office. ========= MEDICATIONS: No (more content not included)... Normal [facility] Office Visit (ORREMN ) EMELY ROBLES ([id number]) 1965 F Date Time Provider Department 03/07/23 9:20 AM ANDERSON ARCEO During your visit today, we recorded the following information about you: Anderson Arceo MD 03/07/2023 11:14 AM Signed Emely Robles is a patient of No primary care provider on file.. CHIEF COMPLAINT: Emely Robles is a 58 year old female who presents today for new evaluation of left knee. Works as a mailing manager HISTORY OF PRESENT ILLNESS: PAIN EVALUATION 03/07/2023 0912 Pain Location: Knee-Left Description: Cramping Emely Robles is a 58 year old female who presents today with chronic left anterior knee pain for the past 1.5 years. Patient does recall a specific injury that started this problem. She states she was lifting heavy parcels when she pivoted and felt pain in the knee. Patient notes that this pain began after this injury. Pain localizes to anterior and medial knee. She notes the pain to be cramping . She notes aggravating factors of heavy lifting. She notes alleviating factors of NSAIDs, knee sleeve. Patient does not note any swelling of the joint. Patient complains of popping or clicking of the knee. Patient complains that the leg feels unstable and wants to give out . She notes hesitency to use the joint. More recently has noticed a lump in the anterolateral thigh that she is concerned about. PRIOR WORKUP: X-ray, MRI - she does not have outside imaging with her today. PRIOR INJURIES/TREATMENT: Ice: No Heat: No Brace: Yes: compression sleeve Assistive device (cane, walker, etc): No Oral medications: Yes: Aleve with some relief Topical medications: Yes: Bengay with some relief Physical Therapy: Yes 1 session September 2022 Corticosteroid injection: No Viscosupplement/gel injection: No Other injection: No Prior Surgery in location of pain: No - she has consulted with an outside surgeon who recommended partial meniscectomy - she was scheduled for this last February but ultimately cancelled. Prior Fracture/Injury in location of pain: No ALLERGIES: ALLERGIES Allergen Reactions Penicillins Hives Sulfa (Sulfonamide * Hives Sulfamethoxazole-Tr* Hives, Other: See Comments PAST MEDICAL HISTORY: No past medical history on file. SOCIAL HISTORY: Tobacco Use: Not on file PHYSICAL EXAMINATION: LT KNEE: Inspection: - Swelling: None - Effusion: None - Skin: No evidence of erythema, warmth, bruising, abrasions. There is poorly circumscribed soft tissue thickening ~5 cm proximal to the superolateral patellar pole over the lateral quad. This is mildly tender. Alignment: normal ROM: Normal. There is pain with deep knee flexion medially Tenderness: Medial joint line Strength: full (5/5) quadriceps strength Patellar testing: Normal patellar mobility Negative patellar apprehension Stability: No gross ligamentous laxity Collateral and cruciate knee ligaments (ACL/PCL/LCL/MCL) are all intact with no significant laxity noted Javy's: Positive - with medial joint line pain Thessaly: Positive - with medial joint line pain Single Leg Squat: Impaired Gait: Normal IMAGING: Final results and radiologist's interpretation, available in the [facility] health record. Images were reviewed with the patient/family members in the office today. My personal interpretation of the performed imaging is mild L medial compartment OA. No acute abnormality. Last XR Knee - Impression Only XR KNEE GENERAL 4V AP BOTH/PA BOTH/LAT/MERC LEFT Exam End: 03/07/2023 8:41 AM (Final result) Impression: IMPRESSION: Mild left knee degenerative arthritis. Entry Level Sales Representative: [facility]NAM Transcribe Date/Time: Mar 07 2023 9:57A... Additionally, [facility]NEE 12/01/21: MR/MR knee LT wo con IMPRESSION: There is an obliquely oriented tear of the posterior horn of the MEDIAL meniscus. The lateral meniscus is intact. There is mild edema along the distal aspect of the medial collateral ligament which may represent a grade 1 MCL sprain. There is a small joint effusion. There is a Haley's cyst which measures 4.0 x 1.0 x 1.8 cm in greatest dimension. There is mild partial thickness chondromalacia along the medial femoral condyle and medial tibial plateau suggesting mild osteoarthritic change. CLINICAL IMPRESSION / ASSESSMENT: (M17.12) Primary osteoarthritis of left knee (primary encounter diagnosis) (M23.304) Derangement of medial meniscus of left knee (M79.89) Mass of soft tissue of knee RECOMMENDATION / PLAN: 58 yo woman with chronic LT medial knee pain c/w known OA and MMT. Has been refractory to conservative management (though only single PT visit). Is managing ok with intermittent analgesics/NSAIDs and knee sleeve. Discussed continued conservative management, including conside (more content not included)... Normal [facility] No Panel Informationon 03-07 [facility] XR KNEE 4V AP/PA BOTH+LAT/ME R LTon 03-07-2023 XR KNEE 4V AP/PA BOTH+LAT/RENÉ LT * * *Final Report* * * DATE OF EXAM: Mar 07 2023 8:40AM AOX 5202 - XR KNEE 4V AP/PA BOTH+LAT/RENÉ LT / PROCEDURE REASON: Pain * * * * Physician Interpretation * * * * HISTORY: Pain . TECHNIQUE: XR KNEE 4V AP/PA BOTH+LAT/RENÉ LT Laterality: LEFT Number of different views (projections): 4 COMPARISON: None available. RESULT: There is no acute fracture or dislocation. There is left knee degenerative arthritis with mild medial compartment joint space narrowing and small tricompartmental marginal osteophytes. There is no evidence of left knee joint effusion. There is no soft tissue swelling. No other significant abnormality. - IMPRESSION: Mild left knee degenerative arthritis. Entry Level Sales Representative: [facility] Transcribe Date/Time: Mar 07 2023 9:57A Dictated by : SONG FORBES MD This examination was interpreted and the report reviewed and electronically signed by: SONG FORBES MD on Mar 07 2023 9:58AM EST [id number] Normal [facility] XR SHLDR >/=3V AP/KASSIE AP/OTH R LTon 03-07-2023 XR SHLDR >/=3V AP/KASSIE AP/OTHR LT * * *Final Report* * * DATE OF EXAM: Mar 07 2023 8:40AM AOX 5252 - XR SHLDR >/=3V AP/KASSIE AP/OTHR LT / PROCEDURE REASON: Pain * * * * Physician Interpretation * * * * HISTORY: Pain . TECHNIQUE: XR SHLDR >/=3V AP/KASSIE AP/OTHR LT Laterality: LEFT Number of different views (projections): 3 COMPARISON: None available. RESULT: There is no acute fracture or dislocation. The acromiohumeral interval is preserved. There are degenerative changes at the acromioclavicular and glenohumeral joints. There are reactive changes at the greater tuberosity humerus. There is no soft tissue swelling. There is no evidence of acute process in the included chest. No other significant abnormality. - IMPRESSION: Degenerative changes. Entry Level Sales Representative: [facility] Transcribe Date/Time: Mar 07 2023 9:51A Dictated by : SONG FORBES MD This examination was interpreted and the report reviewed and electronically signed by: SONG FORBES MD on Mar 07 2023 9:57AM EST [id number] Normal [facility] MR knee LT wo conon 12-01-19 MR knee LT wo con [facility] [address] [place] [id number] MRI Report Signed with Addenda Patient: Emely Robels MR#: [id number] 4 : 1965 Acct:[id number] Age/Sex: 56 / F ADM Date: 12/01/21 Loc: [facility] Room: Type: [facility] CLI Attending Dr: Joby Sharma MD Ordering Provider: Joby Sharma MD Date of Service: 12/01/21 MR/MR knee LT wo con: Internal derangement of left knee Copies to: Joby Sharma MD ADDENDUM 1 Addendum Dictated By: Joel Pedroza II, MD Addendum Signed By: 12/08/211552 Addendum Cosigned By: DD/ TD/TT: 12/08/21 ADDENDUM 1 MR/MR knee LT wo con IMPRESSION: There is an obliquely oriented tear of the posterior horn of the MEDIAL meniscus. The lateral meniscus is intact. There is mild edema along the distal aspect of the medial collateral ligament which may represent a grade 1 MCL sprain. There is a small joint effusion. There is a Haley's cyst which measures 4.0 x 1.0 x 1.8 cm in greatest dimension. There is mild partial thickness chondromalacia along the medial femoral condyle and medial tibial plateau suggesting mild osteoarthritic change. Impression dictated by: Joel Pedroza M.D.12/08/2021 3:53 PM Dictation Location: [place] [address] Addendum Dictated By: Joel Pedroza II, MD Addendum Signed By: 12/08/21 555 Addendum Cosigned By: DD/ TD/TT: 12/08/21 MR knee LT wo con 12/01/2021 12:32 PM SIGNS AND SYMPTOMS: Pain in the distal aspect of the left thigh medially PROTOCOL: Multiplanar multisequence MR images of the left knee were obtained without contrast COMPARISON: Radiographs 10/26/2021 FINDINGS: Fluid: There is a small joint effusion. There is a Haley's cyst which measures 4.0 x 1.0 x 1.8 cm in greatest dimension.. Medial compartment: Medial meniscus: There is an obliquely oriented tear of the posterior horn of the lateral meniscus. Medial collateral ligament: There is mild edema along the distal aspect of the medial collateral ligament which may represent a grade 1 MCL sprain.. Medial femoral condyle cartilage: There is mild partial thickness chondromalacia. Medial tibial plateau cartilage: There is mild partial thickness chondromalacia. Lateral compartment: Lateral meniscus: Intact. Lateral collateral ligament: Intact. Lateral femoral condyle cartilage: Preserved. Lateral tibial plateau cartilage: Preserved. Posterolateral corner: Popliteus tendon: Intact. Popliteofibular ligament: Intact. Proximal tibiofibular joint: Intact. Anterior compartment: Alignment: Normal. Quadriceps tendon: Intact. Patellar tendon: Intact. Retinaculum: Medial intact. Lateral intact. Patellar cartilage: Intact. Trochlea: Intact. . Plica: None. Hoffa fat pad: Normal. Intercondylar compartment: Anterior cruciate ligament: Intact. Posterior cruciate ligament: Intact. Bones (other than subarticular marrow): Normal. Muscles: Normal. Vessels: Normal. Nerves: Normal. MR/MR knee LT wo con IMPRESSION: There is an obliquely oriented tear of the posterior horn of the lateral meniscus. There is mild edema along the distal aspect of the medial collateral ligament which may represent a grade 1 MCL sprain. There is a small joint effusion. There is a Haley's cyst which measures 4.0 x 1.0 x 1.8 cm in greatest dimension. There is mild partial thickness chondromalacia along the medial femoral condyle and medial tibial plateau suggesting mild osteoarthritic change. Impression dictated by: Joel Pedroza M.D.12/01/2021 2:41 PM Dictation Location: [place] [address] Transcribed By: [facility] 12/01/21 1441 Dictated By: Joel Pedroza II, MD 12/01/21 1423 Signed By: 12/01/21 1441 [facility] MM screening mammo BI w/CADo n 11-29-2021 MM screening mammo BI w/CAD [facility] [address] [place] [id number] Mammography Report Signed Patient: Emely Robles MR#: [id number] 4 : 1965 Acct:[id number] Age/Sex: 56 / F ADM Date: 11/29/21 Loc: [place] Room: Type: REG CLI Attending Dr: Referral Self Ordering Provider: KYLE,REFERRAL Date of Service: 11/29/21 MM/MM screening mammo BI w/CAD: SCREEN Copies to: Romelia Quan Pa-C SELF,REFERRAL Bilateral Screening Full Field digital mammogram with 3-D imaging. Full field digital CC and MLO imaging performed. CAD utilized. COMPARISON: 11/23/19 HISTORY:Screening FINDINGS: The breast parenchyma is heterogeneously dense. No developing architectural distortion, developing focal breast asymmetry or developing malignant calcifications identified. A few scattered benign calcifications identified. MM/MM screening mammo BI w/CAD IMPRESSION:No mammographic evidence of malignancy. Routine follow-up recommended in one year. RESULT CODE: 2 Benign Findings(s) DENSITY CODE: 3 (approximately 51-75% glandular) FOLLOW UP: 1YR THE FALSE-NEGATIVE RATE OF MAMMOGRAPHY IS APPROXIMATELY 10%. IMAGING OF A PALPABLE ABNORMALITY MUST BE BASED ON CLINICAL GROUNDS. PATIENT WAS ENTERED INTO A REMINDER SYSTEM WITH A TARGET DUE DATE FOR THE NEXT MAMMOGRAM. Impression dictated by: Ethan Mcdaniel M.D.11/29/2021 2:46 PM Dictation Location: [facility] Transcribed By: [facility] 11/29/21 1446 Dictated By: Ethan Mcdaniel DO 11/29/211441 Signed By: 11/29/21 1446 Normal [facility] XR knee LT 4V*on 10-26-2021 XR knee LT 4V* [facility] Main [address] [address] XRay Report Signed Patient: Emely Robles MR#: [id number] 4 : 1965 Acct:[id number] Age/Sex: 56 / F ADM Date: 10/26/21 Loc: ER Room: Type: [facility] ER Attending Dr: Ordering Provider: Aung Ashton APRN Date of Service: 10/26/21 XR/XR knee LT 4V*: Extremity Injury, Lower Copies to: Aung Ashton APRN CLINICAL HISTORY: Left knee pain on and off for years, worse today. XR knee LT 4V* COMPARISON: None FINDINGS: AP, lateral and oblique views of the left knee were obtained. There is no evidence of fracture, dislocation or bony erosion. There is no significant knee joint narrowing. Minimal spur at the medial femoral condyle is noted. There is a mild to moderate enthesophyte at the superior aspect of the patella. There is a mild suprapatellar knee joint effusion. XR/XR knee LT 4V* IMPRESSION: NO SIGNIFICANT KNEE JOINT NARROWING OR LOCALIZED BONY DESTRUCTION. MILD TO MODERATE ENTHESOPHYTES AT THE SUPERIOR ASPECT OF THE PATELLA. MILD KNEE JOINT EFFUSION. Impression dictated by: Will Clemons M.D.10/26/2021 12:53 PM Dictation Location: [place] [address] Transcribed By: [facility] 10/26/21 1253 Dictated By: Will Clemons MD 10/26/21 1250 Signed By: 10/26/21 1253 [facility] Medium Joint Arthro/Inj: L A C [facility] Vital Signs Date Time Vital Sign Value Performing Clinician Facility 01-31-2024 10:21-0400 Blood Pressure Location [facility] 01-31-2024 10:21-0400 Body temperature 98.6 [degF] [facility] 01-31-2024 10:21-0400 Diastolic blood pressure 84 mm[Hg] [facility] 01-31-2024 10:21-0400 Heart rate 76 /min [facility] 01-31-2024 10:21-0400 Respiratory rate 16 /min [facility] 01-31-2024 10:21-0400 Systolic blood pressure 137 mm[Hg] Guadalupe Mcdowell [facility] 12-07-2021 09:30-0500 Body height 165.1 cm [employer] Other [facility] Other 12-07-2021 09:30-0500 Body mass index (BMI) [Ratio] 35.27 kg/m2 Joby Olexa Other [facility] Other 12-07-2021 09:30-0500 Body weight 96.16 kg [employer] Other [facility] Other Encounters Encounter Date Encounter Type Care Provider Facility Start: 03-26-2024 ambulatory Lance Suarez ty:[id number] Start: 01-31-2024 End: 02-01-2024 ambulatory Guadalupe Mcdowell Facility:[facility] Start: 01-31-2024 End: 01-31-2024 Patient encounter procedure Guadalupe Mcdowell [facility] Start: 01-28-2024 End: 01-29-2024 ambulatory KIMBERLY MCWILLIAMS Not Available Start: 01-13-2024 End: 01-13-2024 ambulatory WILBER Jaswinder CUELLAR Not Available Start: 12-25-2023 ambulatory Guadalupe Mcdowell Facility: [facility] Start: 12-23-2023 End: 12-24-2023 ambulatory DAYANNA SAEZ Not Available Start: 12-13-2023 Bamboo flowsheet Dayanna bender 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: [facility] Start: 12-13-2023 Bamboo flowsheet Dayanna bender 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: [facility] Start: 12-13-2023 Telephone encounter Dayanna linton NP Work Phone: [facility] Start: 12-13-2023 End: 12-13-2023 ambulatory DAYANNA SAEZ Not Available Start: 11-11-2023 End: 11-11-2023 Emergency department patient visit CECE CHRISTINA Facility:[facility] Start: 11-05-2023 End: 11-05-2023 ambulatory JEANNA AAYUSH NOLENSTRI Facility:[facility] Start: 10-17-2023 End: 10-17-2023 ambulatory MEET R DOLCE Not Available Start: 10-08-2023 End: 10-08-2023 ambulatory CECE HCRISTINA Facility:[facility] Start: 10-01-2023 End: 10-01-2023 ambulatory CECE Nicolás CHRISTINA Not Available Start: 09-26-2023 End: 09-26-2023 ambulatory MEET R DOLCE Not Available Start: 09-12-2023 End: 09-13-2023 ambulatory Meet R Dolce Facility:[facility] Start: 09-12-2023 End: 09-12-2023 Patient encounter procedure Meet R Dolce [facility] Start: 05-06-2023 Orders Only Brandon Au MD Work Phone: [facility] Comment on above: 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) Start: 03-07-2023 End: 03-07-2023 ambulatory BRANDON AU Facility:[facility] Start: 03-07-2023 End: 03-07-2023 ambulatory ANTONIO CARPENTER Facility:[facility] Start: 03-07-2023 End: 03-07-2023 Patient encounter procedure Anderson Arceo MD Work Phone: [facility] Comment on above: Primary osteoarthrit is of left knee (Primary Dx); Derangement of medial meniscus of left knee; Mass of soft tissue of knee Arthritis of left ac romioclavicular joint (Primary Dx); Shoulder stiffness, left Start: 03-07-2023 End: 03-07-2023 Subsequent hospital visit by physician Orth General Xray [facility] Comment on above: Pain [R52] Start: 10-01-2022 End: 10-02-2022 ambulatory LUCY BECKETT Facility:[facility] Start: 09-25-2022 End: 09-25-2022 Lab Drop off Lucy Beckett [facility] Start: 02-08-2022 End: 02-13-2022 Pre-admission assessment Antonio Sneed [facility] Start: 01-16-2022 End: 01-16-2022 ambulatory Joby Olexa Other [facility] Other Start: 01-16-2022 Telephone encounter Joby Olexa [facility] Start: 01-05-2022 End: 01-05-2022 ambulatory Joby Olexa Other [facility] Other Start: 01-05-2022 Telephone encounter Joby Olexa [facility] Start: 12-07-2021 End: 12-07-2021 ambulatory Joby Olexa Other [facility] Other Start: 12-07-2021 Office outpatient vi sit 25 minutes Joby Olexa [facility] Start: 11-23-2021 End: 11-23-2021 ambulatory Joby Olexa Other [facility] Other Start: 11-23-2021 Telephone encounter Joby Olexa [facility] Procedures Date Procedure Procedure Detail Performing Clinician Start: 03-07-2023 Arthrocentesis aspir &/inj interm jt/burs w/o us Brandon Au MD Work Phone: Start: 03-07-2023 Radiologic exam knee complete 4/more views Antonio Carpenter MD Work Phone: Start: 11-29-2021 Mammography Dayanna tellez NP Work Phone: Start: 04-25-2020 Colonoscopy Dayanna tellez NP Work Phone: Abdominal hysterectomy Su Mcdowell Cholecystectomy Guadalupe muhammad Colonoscopy Guadalupe Mcdowell Plan of Treatment Date Care Activity Detail Author Start: 04-25-2030 Screening for malign ant neoplasm of colon [facility] Start: 05-10-2024 Influenza vaccination Influenza Vacc ine (#1) [facility] Comment on above: Postponed from 07/12 (Patient Refused) Start: 07-12-2023 Influenza vaccination INFLUENZ A (Season Ended) [facility] Start: 11-29-2022 Screening for malign ant neoplasm of breast Mammogram [facility] Start: 11-11-2022 DEPRESSION ASSESSMENT DEPRESSION ASS ESSMENT [facility] Start: 04-18-2021 COVID-19 VACCINE (3 - Booster for Moderna series) COVID-19 VACCINE (3 - Booster for Moderna series) [facility] Start: 2013 SHINGRIX VACCINE (1 of 2) SHINGRIX VACCINE (1 of 2) [facility] Start: 02-13-2008 COLOGUARD (FIT-DNA) COLOGUARD (FIT-D NA) [facility] Start: 02-13-[address] [facility] Start: 02-13-2008 COLORECTAL CANCER SCREENING COLORECTAL CANCER SCREENING [facility] Start: 02-13-[address] COLONOGRAPHY [facility] Start: 02-13-2008 DIABETES SCREEN DIABETES SCREEN [facility] Start: 02-13-2008 FECAL OCCULT BLOOD FECAL OCCULT BLOO D [facility] Start: 02-13-2008 L[address] S[address] LIPID SCREEN [facility] Start: 02-13-2008 SIGMOIDOSCOPY SIGMOIDOSCOPY [facility] Start: [address] [facility] Start: 1993 HPV TESTING HPV TESTING [facility] Start: 1993 Screening for malign ant neoplasm of cervix [facility] Start: 02-13-1984 PAP TESTING PAP TESTING [facility] Start: 02-13-1984 Screening for malign ant neoplasm of cervix Pap Smear [facility] Start: 1982 Urine microalbumin profile DTAP,TDAP,TD (1 - Tdap) [facility] Start: 1981 HEPATITIS C SCREENING HEPATITIS C SC LINCOLN [facility] Start: 1981 HIV SCREENING HIV SCREENING [facility] Start: 1965 Screening for malign ant neoplasm of colon [facility] End: 04-05-2024 US EXTREMITY MASS/FLUID COLLECTION LEFT US EXTREMITY MASS/FLUID COLLECTION LEFT Radiology Routine Mass of soft tissue of knee 1 Occurrences starting 03/07/2023 until 04/05/2024 [facility] Work Phone: Comment on above: 1 Occurrences starti ng 03/07/2023 until 04/05/2024 Immunizations Immunization Date Immunization Notes Care Provider Shabnam phelan 02-21-2021 SARS-CoV-2 (COVID-19 ) mRNA-1273 vaccine Guadalupe Orzech [facility] 01-24-2021 SARS-CoV-2 (COVID-19 ) mRNA-1273 vaccine Guadalupe Orzech [facility] 08-30-2019 influenza virus vaccine, unspecified formulation Dayanna Saez NP Work Phone: [facility] 09-10-2015 influenza virus vaccine, unspecified formulation Guadalupe Orzech [facility] 07-03-2002 Td(adult) unspecifie d formulation Guadalupe Orzech [facility] Payers Date Payer Category Payer Private Health Insurance AETNA A ETNA CHOICE POS II [id number] 2017-Present [phone] [address] [place] [address] POS [id number] 2017 Managed Care HMO (unspecified) [employer]ET[employer] AETNA [id number] 2017-Present [address] [place] [address] O [id number] 1965 Unknown [id number] [id number]. 2.593 1965 Unknown [id number] 2.16.840.1.657721.3.579. 2.1259 1965 Unknown [id number] 2.16.840.1.642774.3.579. 2.1259 1965 Unknown [id number] 2.16.840.1.205050.3.579. 2.1259 1965 Unknown [id number] 2.16.840.1.893517.3.579. 2.9 1965 Unknown [id number] 2.16.840.1.387782.3.579. 2.9 1965 Unknown [id number] 2.16.840.1.717656.3.579. 2.1259 1965 Unknown [id number] 2.16.840.1.977704.3.579. 2.1259 1965 Unknown [id number] 2.16.840.1.853780.3.579. 2.9 1965 Unknown [id number] 2.16.840.1.122721.3.579. 2.1259 1965 Unknown [id number] 2.16.840.1.226772.3.579. 2.727 1965 Unknown [id number] 2.16.840.1.264423.3.579. 2.727 1965 Unknown [id number] 2.16.840.1.873091.3.579. 2.727 1959 Private Health Insurance [id number] Private Health Insurance [id number] Worker's Compensation [id number] Social History Date Type Detail Facility Tobacco smoking status Unknown if ever sm oked [facility] Other Start: 09-12-2023 End: 10-17-2023 Sex Assigned At Female [facility] Other Tobacco smoking status No Smokin g Status Entered [facility] unknown [facility] Work Phone: Start: 1965 Sex Assigned At Not on file [facility] Start: 07-13-2023 End: 01-31-2024 Tobacco smoking status NJIS Never smoked tobacco [facility] Start: 07-13-2023 Tobacco use and exposure Smokeless tobacco non-user [facility] Start: 10-18-2023 Alcohol intake Lifetime non-drinker (finding) [facility] Start: 09-12-2023 End: 10-17-2023 History of Social function [facility] Within the last year , have you been afraid of your partner or ex-partner? No [facility] Are you now , , , , never or living with a partner? [facility] How often to you hav e a drink containing alcohol? Never [facility] How many standard drinks containing alcohol do you have on a typical day? Patient does not drink [facility] Do you feel stress - tense, restless, nervous, or anxious, or unable to sleep at night because your mind is troubled all the time - these days [OSQ] Very much [facility] (I/We) worried wheth er (my/our) food would run out before (I/we) got money to buy more. Never true [facility] Functional Status Date Assessment Result Facility 01-31-2024 Functional Status N/A [facility] Clinical Notes 12-07-2021 to 01-31-2024 Telephone Encounter - Dayanna Saez NP - 12/24/2023 9:11 AM ESTTelephone Encounter - Dayanna Saez NP - 12/24/2023 9:11 AM ESTTelephone Encounter - Ileana Crisostomo - 12/17/2023 10:12 AM EST Note Date & Type Note Facility 01-31-2024 Hospital Discharge instructions Patient Education 01/31/2024 12:05:33 Urinary Obstruction, Pediatric Urinary Obstruction, Pediatric A urinary obstruction happens when something blocks the passage of urine from your child's body. The blockage may be in: A kidney. This is an organ that filters blood and produces urine. A ureter. This is the part of the body that carries urine from the kidneys to the bladder. The bladder. This is the sac that holds urine until it leaves the body. The urethra. This is the part of the body that drains urine from the bladder. This condition can put pressure on the kidneys. It can lead to a kidney infection or kidney damage. What are the causes? This condition may be caused by: A defect. defects that most often cause this condition involve abnormal development of the ureters, the urethra, or the kidneys. Kidney stones. Blood clots. Scar tissue. Tumors. Severe, chronic constipation. Injuries to the urinary system. Nervous system problems that prevent normal urination. What are the signs or symptoms? Symptoms of this condition include: Pain in the back or abdomen. A mass that can be felt within the abdomen. Urinating less than normal or with a weak stream. Poor growth and weight gain (failure to thrive). Nausea. Vomiting. Symptoms of urinary tract infection, such as: ?A burning feeling when urinating. ?Frequent urination. ?Blood or pus in the urine. ?Fever. In some cases, there are no symptoms. How is this diagnosed? This condition is diagnosed based on: Your child's symptoms and medical history. A physical exam. Your child may also have tests, such as: Ultrasound. X-ray. CT scan. Blood tests. Urine tests. An X-ray exam that uses an injected dye (IV pyelogram or IVP). A test in which a small, hollow tube with a camera on it is inserted into the urethra and bladder (cystoscopy). How is this treated? Treatment for this condition depends on its severity and on the condition that caused it. Sometimes the problem corrects itself as the child grows and develops. In other cases, treatment may be needed. Treatment may include: Placement of a soft plastic tube (stent) into a blocked ureter. Placement of a drainage tube into a kidney. Placement of a tube (catheter) through the urethra into the bladder. Surgery to fix the problem that is causing the obstruction. Destruction or removal of a kidney stone. Antibiotic medicine to treat or prevent infection. Follow these instructions at home: Give wbiy-udr-yhbtweq and prescription medicines only as told by your child's health care provider. If your child was prescribed an antibiotic medicine, give it to him or her as told by the health care provider. Do not stop giving the antibiotic even if your child starts to feel better. Have your child drink enough fluid to keep his or her urine pale yellow. If your child is going home with a catheter in place, make sure you understand how to care for it. Keep all follow-up visits as told by your child's health care provider. This is important. Contact a health care provider if your child: Is not gaining weight. Get help right away if your child: Has pain in his or her back or abdomen. Has a fever. Has frequent urination or burning with urination. Has blood or pus in his or her urine. Does not want to eat or drink. Is vomiting. Has a sudden drop in the amount of urine that he or she produces in a day. Stops producing urine. Is very fussy. Is very sleepy. Has swollen feet or legs. Is younger than 3 months and has a temperature of 100.4 F (38 C) or higher. Summary A urinary obstruction happens when something blocks the passage of urine from your child's body. The blockage can occur anywhere in the urinary system. Your child may have several different tests to diagnose this condition. Treatment will depend on where the blockage occurs, how severe it is, what is causing it, and what symptoms your child has. This information is not intended to replace advice given to you by your health care provider. Make sure you discuss any questions you have with your health care provider. Document Revised: 09/04/2022 Document Reviewed: 09/04/2022 [employer] Patient Education 2022 [employer]. 01/31/2024 12:05:32 Hydronephrosis Hydronephrosis Hydronephrosis is the swelling of one or both kidneys due to a blockage that stops urine from flowing out of the body. Kidneys filter waste from the blood and produce urine. This condition can lead to kidney failure and may become life-threatening if not treated promptly. What are the causes? In infants and children, common causes include problems that occur when a baby is developing in the womb. These can include problems in the kidneys or in the tubes that drain urine into the bladder (ureters). In adults, common causes include: Kidney stones. . A tumor or cyst in the abdomen or pelvis. An enlarged prostate gland. Other causes include: Bladder infection. Scar tissue from a previous surgery or injury. A blood clot. Cancer of the prostate, bladder, uterus, ovary, or colon. What are the signs or symptoms? Symptoms of this condition include: Pain or discomfort in your side (flank) or abdomen. Swelling in your abdomen. Nausea and vomiting. Fever. Pain when passing urine. Feelings of urgency when you need to urinate. Urinating more often than normal. In some cases, you may not have any symptoms. How is this diagnosed? This condition may be diagnosed based on: Your symptoms and medical history. A physical exam. Blood and urine tests. Imaging tests, such as an ultrasound, CT scan, or MRI. A procedure to look at your urinary tract and bladder by inserting a scope into the urethra (cystoscopy). How is this treated? Treatment for this condition depends on where the blockage is, how long it has been there, and what caused it. The goal of treatment is to remove the blockage. Treatment may include: Antibiotic medicines to treat or prevent infection. A procedure to place a small, thin tube (stent) into a blocked ureter. The stent will keep the ureter open so that urine can drain through it. A nonsurgical procedure that crushes kidney stones with shock waves (extracorporeal shock wave lithotripsy). If kidney failure occurs, treatment may include dialysis or a kidney transplant. Follow these instructions at home: Take svkx-hpz-wyceywb and prescription medicines only as told by your health care provider. If you were prescribed an antibiotic medicine, take it exactly as told by your health care provider. Do not stop taking the antibiotic even if you start to feel better. Rest and return to your normal activities as told by your health care provider. Ask your health care provider what activities are safe for you. Drink enough fluid to keep your urine pale yellow. Keep all follow-up visits. This is important. Contact a health care provider if: You continue to have symptoms after treatment. You develop new symptoms. Your urine becomes cloudy or bloody. You have a fever. Get help right away if: You have severe flank or abdominal pain. You cannot drink fluids without vomiting. Summary Hydronephrosis is the swelling of one or both kidneys due to a blockage that stops urine from flowing out of the body. Hydronephrosis can lead to kidney failure and may become life-threatening if not treated promptly. The goal of treatment is to remove the blockage. It may include a procedure to insert a stent into a blocked ureter, a procedure to break up kidney stones, or taking antibiotic medicines. Follow your health care provider's instructions for taking care of yourself at home, including instructions about drinking fluids, taking medicines, and limiting activities. This information is not intended to replace advice given to you by your health care provider. Make sure you discuss any questions you have with your health care provider. Document Revised: 02/14/2021 Document Reviewed: 02/14/2021 [employer] Patient Education 2022 [employer]. 01/31/2024 12:05:31 Dietary Guidelines to Help Prevent Kidney Stones Dietary Guidelines to Help Prevent Kidney Stones Kidney stones are deposits of minerals and salts that form inside your kidneys. Your risk of developing kidney stones may be greater depending on your diet, your lifestyle, the medicines you take, and whether you have certain medical conditions. Most people can lower their risks of developing kidney stones by following these dietary guidelines. Your dietitian may give you more specific instructions depending on your overall health and the type of kidney stones you tend to develop. What are tips for following this plan? Reading food labels Choose foods with no salt added or low-salt labels. Limit your salt (sodium) intake to less than 1,500 mg a day. Choose foods with calcium for each meal and snack. Try to eat about 300 mg of calcium at each meal. Foods that contain 200 500 mg of calcium a serving include: ?8 oz (237 mL) of milk, jvtmjat-aiseqqqhzskj-qybrq milk, and calcium-fortifiedfruit juice. Calcium-fortified means that calcium has been added to these drinks. ?8 oz (237 mL) of kefir, yogurt, and soy yogurt. ?4 oz (114 g) of tofu. ?1 oz (28 g) of cheese. ?1 cup (150 g) of dried figs. ?1 cup (91 g) of cooked broccoli. ?One 3 oz (85 g) can of sardines or mackerel. Most people need 1,000 1,500 mg of calcium a day. Talk to your dietitian about how much calcium is recommended for you. Shopping Buy plenty of fresh fruits and vegetables. Most people do not need to avoid fruits and vegetables, even if these foods contain nutrients that may contribute to kidney stones. When shopping for convenience foods, choose: ?Whole pieces of fruit. ?Pre-made salads with dressing on the side. ?Low-fat fruit and yogurt smoothies. Avoid buying frozen meals or prepared deli foods. These can be high in sodium. Look for foods with live cultures, such as yogurt and kefir. Choose high-fiber grains, such as whole-wheat breads, oat bran, and wheat cereals. Cooking Do not add salt to food when cooking. Place a salt shaker on the table and allow each person to add their own salt to taste. Use vegetable protein, such as beans, textured vegetable protein (TVP), or tofu, instead of meat in pasta, casseroles, and soups. Meal planning Eat less salt, if told by your dietitian. To do this: ?Avoid eating processed or pre-made food. ?Avoid eating fast food. Eat less animal protein, including cheese, meat, poultry, or fish, if told by your dietitian. To do this: ?Limit the number of times you have meat, poultry, fish, or cheese each week. Eat a diet free of meat at least 2 days a week. ?Eat only one serving each day of meat, poultry, fish, or seafood. ?When you prepare animal proteins, cut pieces into small portion sizes. For most meat and fish, one serving is about the size of the palm of your hand. Eat at least five servings of fresh fruits and vegetables each day. To do this: ?Keep fruits and vegetables on hand for snacks. ?Eat one piece of fruit or a handful of berries with breakfast. ?Have a salad and fruit at lunch. ?Have two kinds of vegetables at dinner. You may be told to limit foods that are high in a substance called oxalate. These include: ?Spinach (cooked), rhubarb, beets, sweet potatoes, and New Zealander chard. ?Peanuts. ?Potato chips, bhutanese fries, and baked potatoes with skin on. ?Nuts and nut products. ?Chocolate. If you regularly take a diuretic medicine, make sure to eat at least 1 or 2 servings of fruits or vegetables that are high in potassium each day. These include: ?Avocado. ?Banana. ?Union, prune, carrot, or tomato juice. ?Baked potato. ?Cabbage. ?Beans and split peas. Lifestyle Drink enough fluid to keep your urine pale yellow. This is the most important thing you can do. Spread your fluid intake throughout the day. If you drink alcohol: ?Limit how much you have to: ?0 1 drink a day for women who are not . ?0 2 drinks a day for men. ?Know how much alcohol is in your drink. In the [place] one drink equals one 12 oz bottle of beer (355 mL), one 5 oz glass of wine (148 mL), or one 1 oz glass of hard liquor (44 mL). Lose weight if told by your health care provider. Work with your dietitian to find an eating plan and weight loss strategies that work best for you. General information Talk to your health care provider and dietitian about taking daily supplements. Depending on your health and the cause of your kidney stones, you may be told: ?Do not take high-dose supplements of vitamin C (1,000 mg a day or more). ?To take a calcium supplement. ?To take a daily probiotic supplement. ?To take other supplements such as magnesium, fish oil, or vitamin B6. Take [id number] and prescription medicines only as told by your health care provider. These include supplements. What foods should I limit? Limit your intake of the following foods, or eat them as told by your dietitian. Vegetables Spinach. Rhubarb. Beets. Canned vegetables. Pickles. Olives. Baked potatoes with skin. Grains Wheat bran. Baked goods. Salted crackers. Cereals high in sugar. Meats and other proteins Nuts. Nut butters. Large portions of meat, poultry, or fish. Salted, precooked, or cured meats, such as sausages, meat loaves, and hot dogs. Dairy Cheeses. Beverages Regular soft drinks. Regular vegetable juice. Seasonings and condiments Seasoning blends with salt. Salad dressings. Soy sauce. Ketchup. Barbecue sauce. Other foods Canned soups. Canned pasta sauce. Casseroles. Pizza. Lasagna. Frozen meals. Potato chips. Saudi Arabian fries. The items listed above may not be a complete list of foods and beverages you should limit. Contact a dietitian for more information. What foods should I avoid? Talk to your dietitian about specific foods you should avoid based on the type of kidney stones you have and your overall health. Fruits Grapefruit. The item listed above may not be a complete list of foods and beverages you should avoid. Contact a dietitian for more information. Summary Kidney stones are deposits of minerals and salts that form inside your kidneys. You can lower your risk of kidney stones by making changes to your diet. The most important thing you can do is drink enough fluid. Drink enough fluid to keep your urine pale yellow. Talk to your dietitian about how much calcium you should have each day, and eat less salt and animal protein as told by your dietitian. This information is not intended to replace advice given to you by your health care provider. Make sure you discuss any questions you have with your health care provider. Document Revised: 02/07/2023 Document Reviewed: 02/07/2023 [employer] Patient Education 2022 [employer]. [facility]ha 12-24-2023 Telephone encounter Note Called patient and discussed results of ct abd/pelvis showing a 5mm stone in left ureter that is mild obstructing. Will send referral to [facility] and flomax to pharmacy. Discussed patient's allergy to sulfa and she states her reaction is mild. Discussed she may have a reaction to flomax due to sulfa allergy. Patient ok with trying flomax and will stop if she has a reaction and will let us know. [facility] 12-24-2023 Miscellaneous Notes Called patient and discussed results of ct abd/pelvis showing a 5mm stone in left ureter that is mild obstructing. Will send referral to [facility] and flomax to pharmacy. Discussed patient's allergy to sulfa and she states her reaction is mild. Discussed she may have a reaction to flomax due to sulfa allergy. Patient ok with trying flomax and will stop if she has a reaction and will let us know. Spoke with pt over the phone. Pt understood that insurance approved CT scan for abd/pelvis. Pt said she will call imaging to make arrangements to get CT scan done due to pt's work schedule. Spoke with pre-cert this AM. Pre-cert said pt is approved for CT. Pre-cert stated that they sent it over to imaging. I will contact pt to let pt know that they have been approved. Spoke with Pre-cert this AM and they state that this is still pending. It could take up to 15 days for answer on approval. Pre-cert has not heard anything back as of 12/16/23. They will check again with insurance. I called the patient to inform her that we are still waiting for an approval on her CT of abd/pelvis. I gave her the option of signing an ABN form. Emely would like to wait for an approval. Advised her we would call when answer was received from her insurance. Advised her to call Saturday afternoon if she does not hear from us to check status. Please follow-up on status documented in this encounter [facility] 12-17-2023 Telephone encounter Note Spoke with pt over the phone. Pt understood that insurance approved CT scan for abd/pelvis. Pt said she will call imaging to make arrangements to get CT scan done due to pt's work schedule. [facility] 12-17-2023 Telephone encounter Note Spoke with pre-cert this AM. Pre-cert said pt is approved for CT. Pre-cert stated that they sent it over to imaging. I will contact pt to let pt know that they have been approved. [facility] 12-16-2023 Telephone encounter Note Spoke with Pre-cert this AM and they state that this is still pending. It could take up to 15 days for answer on approval. [facility] 12-16-2023 Telephone encounter Note Pre-cert has not heard anything back as of 12/16/23. They will check again with insurance. [facility] 12-13-2023 Telephone encounter Note I called the patient to inform her that we are still waiting for an approval on her CT of abd/pelvis. I gave her the option of signing an ABN form. Emely would like to wait for an approval. Advised her we would call when answer was received from her insurance. Advised her to call Saturday afternoon if she does not hear from us to check status. Please follow-up on status [facility] 11-05-2023 Note HNO ID: [id number] Author: Jeanna Cai MD Service: ? Author Type: Physician Type: Progress Notes Filed: 11/05/2023 10:00 AM Note Text: Rheumatology Clinic Date of Service: 11/05/2023 Patient: Emely Robles Medical Record: [id number] Last Rheumatology visit: None at [facility] History of Present Illness Emely Robles is a 58 year old White female who presents on 11/05/2023 for an in-person visit for evaluation of Positive ROSAS. HISTORY OF PRESENT ILLNESS 58 year old female who presents for evaluation of positive ROSAS. Past medical history: primary osteoarthritis of the left foot, HLD, anxiety, left meniscal tear (10/26) Past surgical history: bilateral oopherectomy (mother with h/o ovarian cancer), cholecystecomy Notes unclear family history of lupus. Notes her maternal aunt MAY have had lupus. The family is unsure. Has joint pain in her left shoulder, left knee and left foot. 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 Notes she is supposed to get her meniscus repaired but there is no one at work that can cover so she cancelled her surgery. Ongoing knee pain. Has gotten 3 opinions on her knee she reports. She describes inflammation that keeps her from sleeping. The shoulder bothers her. She completed left shoulder PT and CSI in February 2023. This helped her pain. However, notes she has been working a lot and pain has been returning. Was unable to complete PT since she cannot find people to cover. Sleeping at night was painful. She is seeing ophthalmology for floaters. ROSAS found to be 1:40, cytoplasmic pattern on 10/01/23. MRI Foot 09/12/23: No fracture. Mild degenerative changes of the midfoot. Achilles intact. Plantar fascia intact. XR Hip 07/13/23: overall report is normal. ROS: Has rash near her scalp along with forehead. ?seborrheic dermatitis No blood clots No raynauds No pericarditis or pleuritis Recent holter monitor for palpitations +dry eyes 5-6 years old No malar or discoid rash No alopecia Elevated A1C 6.5 09/13/23 No renal disease Patient-Entered Data PROMIS Assessments No flowsheet data found.No flowsheet data found.No flowsheet data found.No flowsheet data found. RAPID 3 [place]over Activities of Daily Living No Data Dress self? - Get in and out of bed? - Walk outdoors? - Wash and dry body? - Get in and out of car? - RAPID 3 Disease Activity Weighed Score Levels: 0 - 1: Near Remission 1.3 - 2.0: Low Severity 2.3 - 4.0: Moderate Severity 4.3 - 10.0: High Severity No flowsheet data found. Patient Health Questionnaire (PHQ-9) No flowsheet data found.(0-4) minimal depression, (5-9) mild depression, (10-14) moderate depression, (15-19) moderately severe depression, (20-27) severe depression Review of Systems ROS RHEUMATOLOGYAll other reviewed and negative other than HPI. Current Medications No current outpatient medications on file prior to visit. No current facility-administered medications on file prior to visit. Labs ROSAS 1:40 CBC overall unremarkable BMP normal Imaging MRI Foot 09/12/23: No fracture. Mild degenerative changes of the midfoot. Achilles intact. Plantar fascia intact. XR Hip 07/13/23: overall report is normal. Physical Exam BP 128/64 Pulse 84 Wt 199 lb 15.3 oz (90.7kg) Exam: GENERAL: Well appearing HEENT: NCAT, PERRLA, EOMI, no scleral icterus, oropharynx clear and without lesions/ulcers. GI: NABS, soft, nondistended SKIN: Warm, dry, no significant rashes, no significant bruising. NEURO: AANDOx3. Mental status and speech normal. MSK: Shoulders: decreased abduction of the left shoulder. No appreciable swelling or tenderness with palpation. Elbows: No flexion contractures. No appreciable swelling, deformities, or tenderness with palpation. Wrists: No limitation of flexion or extension. No appreciable swelling or tenderness with palpation. Hands: No evidence of synovitis or tenderness with palpation. Able to make full fist bilaterally. Knees: No gross deformity. No appreciable effusion. Ankles: No limitation of plantarflexion or dorsiflexion Feet: No evidence of synovitis Impression and Plan Diagnoses: (R76.8) Positive ROSAS (antinuclear antibody) (primary encounter diagnosis) 58 year old female who presents for evaluation of positive ROSAS. ROSAS was collected in the setting of joint pain. She has history of left shoulder pain, left knee and left foot pain for a few years. MRI of foot shows degenerative changes. She has left knee meniscal injury per patient and was recommended to have surgery. Seen by orthopedics and diagnosed with AC joint arthritis and shoulder stiffness. Her ROSAS ROS is positive for dry eye. Otherwise unremarkable. On exam, no notable synovitis. Does have some mild fullness of MCPs, but appears to be soft tissue. No pain with palpation, redness or warmth. No pain in the area of MCPs, PIPs or (more content not included)... [facility] 10-08-2023 Note Education (CARDMN) EMELY Nicolás ([id number]) 1965 F Date Time Provider Department 10/08/23 5:00 PM ARRHYTHMIA MONITORING LAB CARDMN Reason for Visit: Holter Monitor Application [261] Cmt: 48 HR Visit Diagnosis:Palpitations [R00.2] Order(s):HOLTER MONITOR 48 HOUR [0672203] Order #: [id number] During your visit today, we recorded the following information about you: Allergies As of Date: 10/08/2023 Noted Allergy Reaction PENICILLINS 03/07/2023 4 - Hives SULFA (SULFONAMIDE ANTIBIOTICS) 03/07/2023 4 - Hives SULFAMETHOXAZOLE-TRIMETHOPRIM 03/07/2023 4 - Hives 14 - Other: See Comments Date Reviewed: 03/07/2023 Reviewed by: [place] - Fully Assessed Encounter Status:Closed by MAILE SZYMANSKI on 10/08/23 [facility] 10-08-2023 Note HNO ID: [id number] Author: Maile Szymanski Tech Service: ? Author Type: Technologist Type: Progress Notes Filed: 10/08/2023 4:11 PM Note Text: HOLTER MONITOR APPLICATION Patient Name: Emely Monzon Robles [facility] Number: [id number] Chest is cleansed with alcohol Skin prep applied Electrodes place on chest and stress loops secured with tape Fresh battery inserted in monitor Holter monitor secured to patient with waist or shoulder straps Patient instructed 1.) Diary documentation 2.) Usage of event button 3.) Maintenance and care of monitor 4.) Safety issues with monitor 5.) Return unit in 24 hours or 48 hours 6.) Call with problems [phone] Patient expresses good verbal understanding of instructions Mary Payne [facility] 03-07-2023 Note HNO ID: [id number] Author: Brandon Au MD Service: ? Author Type: Physician Type: Progress Notes Filed: 03/07/2023 2:58 PM Note Text: NEW PATIENT NOTE Brandon Au MD,PhD Orthopaedic Surgery [address] [place], [place] [address] OFFICE PHONE [phone], FAX [phone] Referring MD:No referring provider defined for this encounter. Phone: N/A Fax: TYPE OF VISIT:New Patient and Outpatient Consult Date of Service:March 07, 2023 CC: left shoulder pain PATIENT INFO: Ms. Emely Robles 58 year old female HISTORY HPI: is a(n) 58 year old, right handed, female with no PMH who presented here with a chief complaint of left shoulder pain. Onset of symptoms has been gradual started approximately a couple months ago without inciting events. 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 She describes constant, sharp, achy, and dull pain, located in the left shoulder top and around the left scapula. Pain intensity: mild to moderate. Pain is exacerbated by left shoulder extension, lifting, reaching, and twisting; reduced by Heat or Ice. Patient denies fever, night pain, denies unintentional weight loss, denies clumsiness of hands, feet, or dropping things. Denies any constitutional symptomatology. Denies any injuries in her left shoulder. She also has tingling around the left scapula and posterior aspect of the neck. She also mentioned she has occasional left hand cramping, which started about 3 months ago. Pain: 5 Location of pain: left shoulder Pain at rest: 2 Numbness/Paresthesias: no Locking: No Clicking AND catching: No Instability: Yes Prior treatment: none Prior surgical treatments: none OCCUPATION/AVOCATION : mailing manager. Hobbies: Yardwork. ASSESMENT/PLAN IMPRESSION: M19.012 Arthritis of left acromioclavicular joint (primary encounter diagnosis) M25.612 Shoulder stiffness, left PLAN: 1. Medications: None 2. Further tests, imaging, referrals: None 3. Intervention:The patient and I had a long discussion about treatment options including the conservative and operative managements for the left shoulder. I explained that treatment for this problem is non-operative, and the options include anti-inflammatory medications, steroid injection and a physical/occupational therapy program. The expected course of the treatment was outlined, and the patient understood and agreed with the plan. The patient has left AC arthritis with left shoulder mild stiffness. It may affect around shoulder girdle muscles and cause pain. In addition to the comprehensive evaluation, assessment and plan outlined above, and as a distinct and separate element to the visit today, we have made the determination to proceed with an injection to aid in the management of the patient's condition. We discussed the risks, benefits, alternatives and expected outcomes of this injection in detail, and the patient agreed to proceed. The procedure was performed as detailed below. Medium Joint Arthro/Inj: L AC Informed Consent Consent Obtained: Verbal [place] Protocol A moment to CARE was completed. SIGN IN Personnel directly involved with the procedure wore the appropriate PPE. Special Equipment: N/A Patient/Surrogate Stated/Verified: Patient name, Date of , Relevant allergies and Intended procedure TIME OUT Intended patient and procedure match the source document(s). Consent documented and matches the intended procedure. Relevant labs, photos, and/or imaging studies have been reviewed. Correct side/site marked and visible. Medications required for procedure verified. No fire risk assessment and interventions applicable. No implant(s) inserted. 03/07/2023 2:53 PM The procedure site was prepped in the usual sterile fashion. Medications: 6 mg betamethasone acetate-betamethasone sodium phosphate 6 mg/mL Anesthetics: 1 mL lidocaine (PF) 10 mg/mL (1 %) Outcome: tolerated well, no immediate complications Post-injection instructions were reviewed with the patient and the patient voiced understanding of these instructions. SIGN OUT No instruments, equipment or retained foreign bodies applicable. After injection, improving arm cross and left shoulder extension pain. IR is about L4. 4. Follow-up: Follow up will be in 6 weeks for a repeat clinical exam. No x-rays will be needed at that time, unless symptoms have changed. If there are any other questions or problems, the patient was instructed to call the office. MEDICATIONS: No current outpatient medications on file prior to visit. No current facility-administered medications on file prior to visit. ALLERGIES: Penicillins, Sulfa (Sulfonamide Antibi (more content not included)... [facility] 03-07-2023 Instructions Brandon Au MD - 03/07/2023 11:26 AM EDT Follow-up in 6 weeks. Please make an appointment with physical therapy and please do exercise by yourself. documented in this encounter [facility] 03-07-2023 Note HNO ID: [id number] Author: Anderson Arceo MD Service: ? Author Type: Physician Type: Progress Notes Filed: 03/07/2023 11:14 AM Note Text: Emely Robles is a patient of No primary care provider on file.. CHIEF COMPLAINT: Emely Robles is a 58 year old female who presents today for new evaluation of left knee. Works as a mailing manager HISTORY OF PRESENT ILLNESS: PAIN EVALUATION 03/07/2023 0912 Pain Location: Knee-Left Description: Cramping Emely Robles is a 58 year old female who presents today with chronic left anterior knee pain for the past 1.5 years. Patient does recall a specific injury that started this problem. She states she was lifting heavy parcels when she pivoted and felt pain in the knee. Patient notes that this pain began after this injury. Pain localizes to anterior and medial knee. She notes the pain to be cramping . She notes aggravating factors of heavy lifting. She notes alleviating factors of NSAIDs, knee sleeve. Patient does not note any swelling of the joint. Patient complains of popping or clicking of the knee. Patient complains that the leg feels unstable and wants to give out . She notes hesitency to use the joint. More recently has noticed a lump in the anterolateral thigh that she is concerned about. PRIOR WORKUP: X-ray, MRI - she does not have outside imaging with her today. PRIOR INJURIES/TREATMENT: Ice: No Heat: No Brace: Yes: compression sleeve Assistive device (cane, walker, etc): No Oral medications: Yes: Aleve with some relief Topical medications: Yes: Bengay with some relief Physical Therapy: Yes 1 session September 2022 Corticosteroid injection: No Viscosupplement/gel injection: No Other injection: No Prior Surgery in location of pain: No - she has consulted with an outside surgeon who recommended partial meniscectomy - she was scheduled for this last February but ultimately cancelled. Prior Fracture/Injury in location of pain: No ALLERGIES: ALLERGIES Allergen Reactions Penicillins Hives Sulfa (Sulfonamide * Hives Sulfamethoxazole-Tr* Hives, Other: See Comments PAST MEDICAL HISTORY: No past medical history on file. SOCIAL HISTORY: Tobacco Use: Not on file PHYSICAL EXAMINATION: LT KNEE: Inspection: - Swelling: None - Effusion: None - Skin: No evidence of erythema, warmth, bruising, abrasions. There is poorly circumscribed soft tissue thickening ~5 cm proximal to the superolateral patellar pole over the lateral quad. This is mildly tender. Alignment: normal ROM: Normal. There is pain with deep knee flexion medially Tenderness: Medial joint line Strength: full (5/5) quadriceps strength Patellar testing: Normal patellar mobility Negative patellar apprehension Stability: No gross ligamentous laxity Collateral and cruciate knee ligaments (ACL/PCL/LCL/MCL) are all intact with no significant laxity noted Javy's: Positive - with medial joint line pain Thessaly: Positive - with medial joint line pain Single Leg Squat: Impaired Gait: Normal IMAGING: Final results and radiologist's interpretation, available in the [facility] health record. Images were reviewed with the patient/family members in the office today. My personal interpretation of the performed imaging is mild L medial compartment OA. No acute abnormality. Last XR Knee - Impression Only XR KNEE GENERAL 4V AP BOTH/PA BOTH/LAT/MERC LEFT Exam End: 03/07/2023 8:41 AM (Final result) Impression: IMPRESSION: Mild left knee degenerative arthritis. Entry Level Sales Representative: SHABNAM Transcribe Date/Time: Mar 07 2023 9:57A... Additionally, [facility] LT KNEE 12/01/21: MR/MR knee LT wo con IMPRESSION: There is an obliquely oriented tear of the posterior horn of the MEDIAL meniscus. The lateral meniscus is intact. There is mild edema along the distal aspect of the medial collateral ligament which may represent a grade 1 MCL sprain. There is a small joint effusion. There is a Haley's cyst which measures 4.0 x 1.0 x 1.8 cm in greatest dimension. There is mild partial thickness chondromalacia along the medial femoral condyle and medial tibial plateau suggesting mild osteoarthritic change. CLINICAL IMPRESSION / ASSESSMENT: (M17.12) Primary osteoarthritis of left knee (primary encounter diagnosis) (M23.304) Derangement of medial meniscus of left knee (M79.89) Mass of soft tissue of knee RECOMMENDATION / PLAN: 58 yo woman with chronic LT medial knee pain c/w known OA and MMT. Has been refractory to conservative management (though only single PT visit). Is managing ok with intermittent analgesics/NSAIDs and knee sleeve. Discussed continued conservative management, including consideration of an IA CSI - which she prefers to avoid - vs again consideration of returning to Orthopedic Surgery for PMM. She prefers to continue current management at this time. Regardin (more content not included)... [facility] 03-07-2023 History of Present illness Narrative Associated Order(s): Medium Joint Arthro/Inj: L AC Post-Procedure Diagnose(s): Arthritis of left acromioclavicular joint NEW PATIENT NOTE Brandon Au MD,PhD Orthopaedic Surgery [address] [facility] [place], [place] [address] OFFICE PHONE [phone], FAX [phone] Referring MD:No referring provider defined for this encounter. Phone: N/A Fax: TYPE OF VISIT:New Patient and Outpatient Consult Date of Service:March 07, 2023 CC: left shoulder pain PATIENT INFO: Ms. Emely Robles 58 year old female HISTORY HPI: is a(n) 58 year old, right handed, female with no PMH who presented here with a chief complaint of left shoulder pain. Onset of symptoms has been gradual started approximately a couple months ago without inciting events. 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 She describes constant, sharp, achy, and dull pain, located in the left shoulder top and around the left scapula. Pain intensity: mild to moderate. Pain is exacerbated by left shoulder extension, lifting, reaching, and twisting; reduced by Heat or Ice. Patient denies fever, night pain, denies unintentional weight loss, denies clumsiness of hands, feet, or dropping things. Denies any constitutional symptomatology. Denies any injuries in her left shoulder. She also has tingling around the left scapula and posterior aspect of the neck. She also mentioned she has occasional left hand cramping, which started about 3 months ago. Pain: 5 Location of pain: left shoulder Pain at rest: 2 Numbness/Paresthesias: no Locking: No Clicking & catching: No Instability: Yes Prior treatment: none Prior surgical treatments: none OCCUPATION/AVOCATION : mailing manager. Hobbies: Yardwork. ASSESMENT/PLAN IMPRESSION: M19.012 Arthritis of left acromioclavicular joint (primary encounter diagnosis) M25.612 Shoulder stiffness, left PLAN: 1. Medications: None 2. Further tests, imaging, referrals: None 3. Intervention:The patient and I had a long discussion about treatment options including the conservative and operative managements for the left shoulder. I explained that treatment for this problem is non-operative, and the options include anti-inflammatory medications, steroid injection and a physical/occupational therapy program. The expected course of the treatment was outlined, and the patient understood and agreed with the plan. The patient has left AC arthritis with left shoulder mild stiffness. It may affect around shoulder girdle muscles and cause pain. In addition to the comprehensive evaluation, assessment and plan outlined above, and as a distinct and separate element to the visit today, we have made the determination to proceed with an injection to aid in the management of the patient's condition. We discussed the risks, benefits, alternatives and expected outcomes of this injection in detail, and the patient agreed to proceed. The procedure was performed as detailed below. Medium Joint Arthro/Inj: L AC Informed Consent Consent Obtained: Verbal [place] Protocol A moment to CARE was completed. SIGN IN Personnel directly involved with the procedure wore the appropriate PPE. Special Equipment: N/A Patient/Surrogate Stated/Verified: Patient name, Date of , Relevant allergies and Intended procedure TIME OUT Intended patient and procedure match the source document(s). Consent documented and matches the intended procedure. Relevant labs, photos, and/or imaging studies have been reviewed. Correct side/site marked and visible. Medications required for procedure verified. No fire risk assessment and interventions applicable. No implant(s) inserted. 03/07/2023 2:53 PM The procedure site was prepped in the usual sterile fashion. Medications: 6 mg betamethasone acetate-betamethasone sodium phosphate 6 mg/mL Anesthetics: 1 mL lidocaine (PF) 10 mg/mL (1 %) Outcome: tolerated well, no immediate complications Post-injection instructions were reviewed with the patient and the patient voiced understanding of these instructions. SIGN OUT No instruments, equipment or retained foreign bodies applicable. After injection, improving arm cross and left shoulder extension pain. IR is about L4. 4. Follow-up: Follow up will be in 6 weeks for a repeat clinical exam. No x-rays will be needed at that time, unless symptoms have changed. If there are any other questions or problems, the patient was instructed to call the office. MEDICATIONS: No current outpatient medications on file prior to visit. No current facility-administered medications on file prior to visit. ALLERGIES: Penicillins, Sulfa (Sulfonamide Antibiotics), and Sulfamethoxazole-Trimethoprim PAST MEDICAL HISTORY: No past medical history on file. PAST SURGICAL HISTORY: No past surgical history on file. FAMILY HISTORY: No family history on file. 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 REVIEW OF SYSTEMS: GENERAL: No fever, chills, not distressed. HEAD: No blurred vision, or hearing loss. NECK: Negative for lumps, pain and significant neck swelling CARDIOVASCULAR: No hypertension RESPIRATORY: No SOB, chronic cough, wheezing. GI: patient denies any history of GERD, PUD. SKIN: NO VARICOSE VEINS, RASH, ABNORMAL ITCHING BLOOD/LYMPHATIC: No easy bleeding, easy bruising, hypercholesterolemia. NEUROLOGICAL: No headaches, numbness seizures, stroke. PSYCH: Negative for mood disorder. PHYSICAL EXAM: There were no vitals taken for this visit. GENERAL:Wnl nutrition, no deformities, healthy appearing HEAD & NECK: Normocephalic, atraumatic RESP: NL effort, no retractions or purse-lip breathing. CV: No extremity swelling, varices, edema, pallor, erythema ABDOMEN: Not distended SKIN/LYMPH: No rash, lesions. NEURO/PSYCH: A/Ox3. Nl mood, with no signs of depression, anxiety, or agitation. GENITOURINARY: Not examined. LOWER EXTREMITIES: Nornal exam. UPPER EXTREMITIES: Right Shoulder: Impingement tests: - Neer's test is negative. - Hawkin's test is negative. - Subacromial tenderness is absent - AC Joint cross arm test is negative. Tenderness is absent. Active Range of Motion: (AROM): - forward elevation is 170 degrees. - external rotation is 55 degrees. - internal rotation is to the T9 region. Passive range of motion (PROM): - forward elevation is 175 degrees] - external rotation is 60 degrees. Strength: - abduction is 5 out of 5 without pain. - external rotation is 5 out of 5 without pain. Special Tests: - Lag test is negative. - Speed's test is negative. - Belly press (subscapularis muscle) test is negative. - Suprascapular and axillary nerve funtion are normal. Negative [place]. Left Shoulder: Impingement tests: - Neer's test is negative. - Hawkin's test is negative. - Subacromial tenderness is absent - AC Joint cross arm test is mild. Tenderness is present moderate. Active Range of Motion: (AROM): - forward elevation is 150 degrees. - external rotation is 55 degrees. - internal rotation is to the buttock region. Passive range of motion (PROM): - forward elevation is 140 degrees. - external rotation is 55 degrees. Strength: - abduction is 5 out of 5 without pain. - external rotation is 5 out of 5 without pain. Special Tests: - Lag test is negative. - Speed's test is negative. - Belly press (subscapularis muscle) test is negative. - Suprascapular and axillary nerve funtion are normal. Negative [place]. Other: - Vascular exam is normal. Hand is warm. - Skin is normal - Neck is supple and Spurling's test is negative IMAGING: I reviewed her left shoulder x-ray: AC arthritis. I spent a total of 45 minutes on the date of the service which included preparing to see the patient, [id number] patient care, completing clinical documentation, obtaining and/or reviewing separately obtained history, performing a medically appropriate examination, counseling and educating the patient/family/caregiver, ordering medications, tests, or procedures and communicating results to the patient/family/caregiver. Brandon Au MD,PhD Orthopaedic Surgery [phone] March 07, 2023 10:57 AM documented in this encounter [facility] 03-07-2023 Note HNO ID: [id number] Author: Mary Leon Service: ? Author Type: [employer] Developer Type: Progress Notes Filed: 03/07/2023 8:42 AM Note Text: Radiology Service Progress Note PATIENT NAME: Emely Robles DATE OF SERVICE: March 07, 2023 TIME: 8:41 AM PATIENT IDENTITY VERIFICATION COMPLETED USING TWO (2) IDENTIFIERS: Name and Date of confirmed by patient verbally. FALL SCREENING: Has the patient had 2 falls in the last year or 1 fall with injury or currently using an Ambulatory Assistive Device (Walker, Cane, Wheelchair, Crutches, etc.)? No PATIENT GENDER DATA: Female. status: : No status: NO. PATIENT RELEVANT IMPLANT DATA REVIEWED: Not Applicable RADIOLOGY DEPARTMENT: General X-ray: Exam(s) Completed: Lower Extremity X-Ray(s): Knee, AP / Lat / Tunne / Merchant Left Upper Extremity X-Ray(s): Shoulder, AP / TRUE AP / AXILLARY left PERIPHERAL IV DATA: Not applicable SIGNED BY: Mary Leon March 07, 2023 8:41 AM [facility] 03-07-2023 History of Present illness Narrative Emely Robles is a patient of No primary care provider on file.. CHIEF COMPLAINT: Emely Robles is a 58 year old female who presents today for new evaluation of left knee. Works as a mailing manager HISTORY OF PRESENT ILLNESS: PAIN EVALUATION 03/07/2023 0912 Pain Location: Knee-Left Description: Cramping Emely Robles is a 58 year old female who presents today with chronic left anterior knee pain for the past 1.5 years. Patient does recall a specific injury that started this problem. She states she was lifting heavy parcels when she pivoted and felt pain in the knee. Patient notes that this pain began after this injury. Pain localizes to anterior and medial knee. She notes the pain to be cramping . She notes aggravating factors of heavy lifting. She notes alleviating factors of NSAIDs, knee sleeve. Patient does not note any swelling of the joint. Patient complains of popping or clicking of the knee. Patient complains that the leg feels unstable and wants to give out . She notes hesitency to use the joint. More recently has noticed a lump in the anterolateral thigh that she is concerned about. PRIOR WORKUP: X-ray, MRI - she does not have outside imaging with her today. PRIOR INJURIES/TREATMENT: Ice: No Heat: No Brace: Yes: compression sleeve Assistive device (cane, walker, etc): No Oral medications: Yes: Aleve with some relief Topical medications: Yes: Bengay with some relief Physical Therapy: Yes 1 session September 2022 Corticosteroid injection: No Viscosupplement/gel injection: No Other injection: No Prior Surgery in location of pain: No - she has consulted with an outside surgeon who recommended partial meniscectomy - she was scheduled for this last February but ultimately cancelled. Prior Fracture/Injury in location of pain: No ALLERGIES: ALLERGIES Allergen Reactions Penicillins Hives Sulfa (Sulfonamide * Hives Sulfamethoxazole-Tr* Hives, Other: See Comments PAST MEDICAL HISTORY: No past medical history on file. SOCIAL HISTORY: Tobacco Use: Not on file PHYSICAL EXAMINATION: LT KNEE: Inspection: - Swelling: None - Effusion: None - Skin: No evidence of erythema, warmth, bruising, abrasions. There is poorly circumscribed soft tissue thickening ~5 cm proximal to the superolateral patellar pole over the lateral quad. This is mildly tender. Alignment: normal ROM: Normal. There is pain with deep knee flexion medially Tenderness: Medial joint line Strength: full (5/5) quadriceps strength Patellar testing: Normal patellar mobility Negative patellar apprehension Stability: No gross ligamentous laxity Collateral and cruciate knee ligaments (ACL/PCL/LCL/MCL) are all intact with no significant laxity noted Javy's: Positive - with medial joint line pain Thessaly: Positive - with medial joint line pain Single Leg Squat: Impaired Gait: Normal IMAGING: Final results and radiologist's interpretation, available in the [facility] health record. Images were reviewed with the patient/family members in the office today. My personal interpretation of the performed imaging is mild L medial compartment OA. No acute abnormality. Last XR Knee - Impression Only XR KNEE GENERAL 4V AP BOTH/PA BOTH/LAT/MERC LEFT Exam End: 03/07/2023 8:41 AM (Final result) Impression: IMPRESSION: Mild left knee degenerative arthritis. Entry Level Sales Representative: SHABNAM Transcribe Date/Time: Mar 07 2023 9:57A... Additionally, [facility]EE 12/01/21: MR/MR knee LT wo con IMPRESSION: There is an obliquely oriented tear of the posterior horn of the MEDIAL meniscus. The lateral meniscus is intact. There is mild edema along the distal aspect of the medial collateral ligament which may represent a grade 1 MCL sprain. There is a small joint effusion. There is a Haley's cyst which measures 4.0 x 1.0 x 1.8 cm in greatest dimension. There is mild partial thickness chondromalacia along the medial femoral condyle and medial tibial plateau suggesting mild osteoarthritic change. CLINICAL IMPRESSION / ASSESSMENT: (M17.12) Primary osteoarthritis of left knee (primary encounter diagnosis) (M23.304) Derangement of medial meniscus of left knee (M79.89) Mass of soft tissue of knee RECOMMENDATION / PLAN: 58 yo woman with chronic LT medial knee pain c/w known OA and MMT. Has been refractory to conservative management (though only single PT visit). Is managing ok with intermittent analgesics/NSAIDs and knee sleeve. Discussed continued conservative management, including consideration of an IA CSI - which she prefers to avoid - vs again consideration of returning to Orthopedic Surgery for PMM. She prefers to continue current management at this time. Regarding lump in the L anterolateral thigh - discussed further eval with targeted diagnostic MSK US eval. An order was placed for this today. She will need follow up to review results, but can be phone/virtual. Verbal health education was given to patient. Patient verbalizes understanding and agrees with the treatment plan as detailed above. Anderson Arceo MD documented in this encounter [facility] 03-07-2023 History of Present illness Narrative Radiology Service Progress Note PATIENT NAME: Emely Robles DATE OF SERVICE: March 07, 2023 TIME: 8:41 AM PATIENT IDENTITY VERIFICATION COMPLETED USING TWO (2) IDENTIFIERS: Name and Date of confirmed by patient verbally. FALL SCREENING: Has the patient had 2 falls in the last year or 1 fall with injury or currently using an Ambulatory Assistive Device (Walker, Cane, Wheelchair, Crutches, etc.)? No PATIENT GENDER DATA: Female. status: : No status: NO. PATIENT RELEVANT IMPLANT DATA REVIEWED: Not Applicable RADIOLOGY DEPARTMENT: General X-ray: Exam(s) Completed: Lower Extremity X-Ray(s): Knee, AP / Lat / Tunne / Merchant Left Upper Extremity X-Ray(s): Shoulder, AP / TRUE AP / AXILLARY left PERIPHERAL IV DATA: Not applicable SIGNED BY: Mary Leon March 07, 2023 8:41 AM documented in this encounter [facility] 09-25-2022 Evaluation + Plan note Diagnostic Tests PendingEnteric Panel by PCR 09/25/22Clostridium difficile by PCR 09/25/22O & P Exam, Routine 09/25/22 [facility] 09-25-2022 Evaluation + Plan note Diagnostic Tests PendingO & P Exam, Routine 09/25/22 [facility] 12-07-2021 Evaluation note Encounter Date Diagnosis Assessment Notes Nov, Acute lateral meniscus tear of left knee, initial encounter (ICD-10 - S83.282A) MRI reviewed with patient as lateral meniscal tear as well as haley's cyst. Discussed treatment as cortisone injection to the knee to decrease inflammation/nelly n, versus knee arthroscopy with menisectemy. Patient opts to pursue surgery. We will plan on arthroscopy and lateral menisectemy. We have discussed continued non-operative treatments including gentle exercise, use of medications and activity modification. Patient states that they would like to proceed with surgery at this time. We discussed the surgery process in detail including nothing by mouth 8 hrs prior to sugery, thorough washing of leg pior to coming to surgery. We discussed the multiple potential risks of anesthesia including respiratory, cardiac and patient positioning issues. We discussed the multiple risks of surgery particularly wound infection, deep venous thrombosis(DVT), persistent swelling, pain and stiffness after surgery, as well as worsening of pre-existing arthritic symptoms. Patient has agreed to understanding of these risks and would like to proceed. Advised patient plan to be off work 2-6 weeks post op. Patient to continue off work pending surgery at this time. Nov, Synovial cyst of popliteal space [Haley], left knee (ICD-10 - M71.22) [place] [facility] Other Evaluation + Plan note No data available for this section [facility] noteNo InformationNortG[facility] Need Fixed Other Evaluation note* Diagnosis Primary osteoarthritis of left knee- Primary Primary localized osteoarthrosis, lower leg Derangement of medial meniscus of left knee Mass of soft tissue of knee [facility]* Diagnosis Pain Generalized pain documented in this encounter [facility]* Diagnosis Pain Generalized pain documented in this encounter [facility] note* Diagnosis Arthritis of left acromioclavicular joint- Primary Unspecified arthropathy, shoulder region Shoulder stiffness, left documented in this encounter [facility] note* Diagnosis Arthrosis of right acromioclavicular joint- Primary [facility] this [facility]* Diagnosis Left renal stone- Primary [facility] N[facility] - Reported* Type Description Date Surgical History oophorectomy Surgical History cholecystectomy Hospitalization History see above [facility] Other Hospital Discharge instructions No data available for this section [facility] No data available for this section [facility] Diagnostic Procedure Only (Routine) - Pending Review Specialty Diagnoses / Procedures Referred By Contac t Referred To Contact US IMAGING Diagnoses Mass of soft tissue of knee Procedures US EXTREMITY MASS/FLUID COLLECTION LEFT Anderson Arceo MD [address] [place] [address] Us Imaging Referral ID Status Reason Start Date Expiration Date Visits Requested Visits Authorized [id number] Pending Review Auto-Generat ed Referral 03/07/2023 04/05/2024 1 1 [facility] for referral (narrative)* Diagnostic Procedure Only (Routine) - Closed Specialty Diagnoses / Procedures Referred By Contac t Referred To Contact XR IMAGING Diagnoses Pain Procedures XR KNEE GENERAL 4V AP BOTH/PA BOTH/LAT/MERC LEFT RADIOLOGIC EXAM KNEE COMPLETE 4/MORE VIEWS Antonio Carpenter MD [address] [place] [id number] Xr Imaging Referral ID Status Reason Start Date Expiration Date V isits Requested Visits Authorized [id number] Closed Auto-Generate d Referral 01/23/2023 02/22/2024 1 1 [facility] for referral (narrative)* Diagnostic Procedure Only (Routine) - Closed Specialty Diagnoses / Procedures Referred By Contac t Referred To Contact XR IMAGING Diagnoses Pain Procedures XR SHOULDER GENERAL 3V OR MORE AP/TRUE AP/OTHER LEFT RADEX SHOULDER COMPLETE MINIMUM 2 VIEWS Brandon Au MD [address] [place] [address] Xr Imaging Referral ID Status Reason Start Date Expiration Date V isits Requested Visits Authorized [id number] Closed Auto-Generate d Referral 01/23/2023 02/22/2024 1 1 [facility] for referral (narrative)* - Pending Review Specialty Diagnoses / Procedures Referred By Contac t Referred To Contact Diagnoses Arthritis of left acromioclavicular joint Shoulder stiffness, left Procedures CONSULT TO PHYSICAL THERAPY Brandon Au MD [address] [place] [address] Referral ID Status Reason Start Date Expiration Date V isits Requested Visits Authorized [id number] Pending Review 03/07/2023 06/05/2023 1 1 [facility] for referral (narrative)* - Pending Review Specialty Diagnoses / Procedures Referred By Contac t Referred To Contact Diagnoses Arthrosis of right acromioclavicular joint Procedures CONSULT TO PHYSICAL THERAPY Brandon Au MD [address] [place] [address] Referral ID Status Reason Start Date Expiration Date V isits Requested Visits Authorized [id number] Pending Review 05/06/2023 08/04/2023 1 1 [facility] for referral (narrative)* Consultation (Routine) - Pending Review Specialty Diagnoses / Procedures Referred By Contac t Referred To Contact Urology Diagnoses Left renal stone Procedures [facility] OFFICE/OUTPATIENT NEW HIGH MDM 60 MINUTES Dayanna Saez NP [address] [place] [address] Lance Colbert MD [address] [place] [address] Referral ID Status Reason Start Date Expiration Date Visits Requested Visits Authorized [id number] Pending Review Specialty Services Required 12/24/2023 06/21/2024 1 1 [facility] for visit Narrative* Diagnostic Procedure Only (Routine) - Closed Specialty Diagnoses / Procedures Referred By Rigoberto pierce Referred To Contact XR IMAGING Diagnoses Pain Procedures XR SHOULDER GENERAL 3V OR MORE AP/TRUE AP/OTHER LEFT RADEX SHOULDER COMPLETE MINIMUM 2 VIEWS Brandon Au MD [address] [facility] [address] [place] [address] Xr Imaging Referral ID Status Reason Start Date Expiration Date V isits Requested Visits Authorized [id number] Closed Auto-Generate d Referral 01/23/2023 02/22/[address] [facility] Summary Purpose Family History No Family History Records FoundNo Family History Records FoundNo Family History Records Found No data available for this section No Family History Records FoundNo Family History Records Found No data available for this section No Family History Records FoundNo Family History Records Found Advance Directives No Advanced Directives Records FoundNo Advanced Directives Records FoundNo Advanced Directives Records FoundNo Advanced Directives Records FoundNo Advanced Directives Records FoundNo Advanced Directives Records FoundNo Advanced Directives Records Found Medications Administered Section Inactive Administered Medications - up to 3 most recent administrations Medication Order MAR Action Action Date Dose Rate Site betamethasone acetate-betamethasone sodium phosphate 6 mg injection (CELESTONE) 6 mg, Injection - FOR ORTHO USE ONLY, ONE TIME INJECTION, 1 dose, Starting on Lashanda 03/07/23 at 1453, Until Lashanda 03/07/23 at 1453 Given 03/07/2023 2:53 PM EDT 6 mg Shoulder, Left lidocaine (PF) 10 mg/mL (1 %) 1 mL injection (XYLOCAINE) 1 mL, Injection - FOR ORTHO USE ONLY, ONE TIME INJECTION, 1 dose, Starting on Lashanda 03/07/23 at 1453, Until Lashanda 03/07/23 at 1453 Given 03/07/2023 2:53 PM EDT 1 mL Shoulder, Left Additional Source Comments INFORMATION SOURCE (unrecogn ized section and content) DATE CREATED AUTHOR 01/19/2022 [facility] DATE CREATED AUTHOR AUTHOR'S ORGANIZ ATION 11/09/2022 [facility] DATE CREATED AUTHOR AUTHOR'S ORGANIZ ATION 03/13/2023 [facility] DATE CREATED AUTHOR AUTHOR'S ORGANIZ ATION 11/07/2023 [facility] DATE CREATED AUTHOR AUTHOR'S ORGANIZ ATION 11/11/2023 [facility] DATE CREATED AUTHOR AUTHOR'S ORGANIZ ATION 02/02/2024 [facility] EPIC DATE CREATED AUTHOR AUTHOR'S ORGANIZ ATION 02/22/2024 [facility] REASON FOR VISIT (unrecogniz ed section and content) Reason Comments Knee Pain Left Reason Comments Radio Gen A21 Specialty Diagnoses / Procedures Referred By Contac t Referred To Contact XR IMAGING Diagnoses Pain Procedures XR KNEE GENERAL 4V AP BOTH/PA BOTH/LAT/MERC LEFT RADIOLOGIC EXAM KNEE COMPLETE 4/MORE VIEWS Antonio Carpenter MD [address] [place] [address] Xr Imaging Referral ID Status Reason Start Date Expiration Date V isits Requested Visits Authorized [id number] Closed Auto-Generate d Referral 01/23/2023 02/22/2024 1 1 Reason Comments New Pain Stiffness Weakness Patient Care team informatio n (unrecognized section and content) Security Investigator Relationship Specialty Start Date End Date Keke Romero MD [address] [place] [address] PCP - General Family Medicine 03/19/23 Security Investigator Relationship Specialty Start Date End Date Keke Romero MD [address] [place] [address] PCP - General Family Medicine 03/19/23 Source Comments (unrecognize d section and content) In the event this informatio n is protected by the Federal Confidentiality of Alcohol and Drug Abuse Patient Records regulations: The Federal rules restrict any use of the information to criminally investigate or prosecute any alcohol or drug abuse patient.[facility] the event this information is protected by the Federal Confidentiality of Alcohol and Drug Abuse Patient Records regulations: The Federal rules restrict any use of the information to criminally investigate or prosecute any alcohol or drug abuse patient.[facility] the event this information is protected by the Federal Confidentiality of Alcohol and Drug Abuse Patient Records regulations: The Federal rules restrict any use of the information to criminally investigate or prosecute any alcohol or drug abuse patient.[facility] [facility]In the event this information is protected by the Federal Confidentiality of Alcohol and Drug Abuse Patient Records regulations: The Federal rules restrict any use of the information to criminally investigate or prosecute any alcohol or drug abuse patient.[facility] [facility]In the event this information is protected by the Federal Confidentiality of Alcohol and Drug Abuse Patient Records regulations: The Federal rules restrict any use of the information to criminally investigate or prosecute any alcohol or drug abuse patient.[facility] [place] [facility] FOR RECORDS PERTAINING TO PATIENTS WHO ARE OR HAVE BEEN ENROLLED IN A CHEMICAL DEPENDENCY/SUBSTANCEABUSE PROGRAM, SOME INFORMATION MAY BE OMITTED. This clinical summary was aggregated from multiple sources. Caution should be exercised in using it in the provision of clinical care. This summary normalizes information from multiple sources, and as a consequence, information in this document may materially change the coding, format and clinical context of patient data. In addition, data may be omitted in some cases. CLINICAL DECISIONS SHOULD BE BASED ON THE PRIMARY CLINICAL RECORDS. [facility] [employer] [facility]. provides no warranty or guarantee of the accuracy or completeness of information in this document.
[2024-03-12 15:20] LABS: Basophils Absolute Auto 0.1 10^3/uL (0.0-0.1); Basophils Percent Auto 1.1 % (0.2-2.0); Eosinophils Absolute Auto 0.3 10^3/uL (0.0-0.7); Eosinophils Percent Auto 4.5 % (0.9-7.0); Hematocrit 40.4 % (36.0-48.0); Hemoglobin 13.2 g/dL (12.0-16.0); Immature Granulocytes Pct Auto 1.3 % (0.0-0.5); Lymphocytes Absolute Auto 2.2 10^3/uL (1.2-3.8); Lymphocytes Percent Auto 29.4 % (20.5-60.0); Mean Corpuscular HGB Conc 32.7 g/dL (29.9-35.2); Mean Corpuscular Hemoglobin 29.7 pg (26.7-34.0); Mean Corpuscular Volume 90.8 fL (81.0-99.0); Mean Platelet Volume 9.7 fL (9.5-13.5); Monocytes Absolute Auto 0.5 10^3/uL (0.3-0.8); Monocytes Percent Auto 7.1 % (1.7-12.0); Neutrophils Absolute Auto 4.3 10^3/uL (1.4-6.5); Neutrophils Percent Auto 56.6 % (43.0-75.0); Platelet Count 264 10^3/uL (150-450); Red Blood Count 4.45 10^6/uL (4.20-5.40); Red Cell Distribution Width 12.3 % (11.0-15.0); White Blood Count 7.6 10^3/uL (4.0-11.0)
[2024-03-12 15:34] LABS: INR 0.99; Partial Thromboplastin Time 27.3 sec (22.3-36.2); Prothrombin Time 10.5 sec (9.0-11.6)
[2024-03-12 16:28] LABS: Anion Gap 14.4; BUN Creatinine Ratio 19.3; Calcium 8.9 mg/dL (8.5-10.1); Carbon Dioxide 25.8 mmol/L (21.0-32.0); Chloride 105 mmol/L (98-107); Estimated GFR (African America >60 (>=60); Estimated GFR (Non-African Ame >60 (>=60); Glucose 203 mg/dL (74-106); Potassium 4.2 mmol/L (3.5-5.1); Sodium 141 mmol/L (136-145)
== END 2024-03-12 14:28 | disposition home or self-care (01) ==
PROVIDERS: PCP Nurse Practitioner Family; Visit Provider Urology
DX: Z01.810 Encounter for preprocedural cardiovascular examination (principal); Z01.812 Encounter for preprocedural laboratory examination; Z01.818 Encounter for other preprocedural examination; N13.2 Hydronephrosis with renal and ureteral calculous obstruction
CPT/HCPCS: 80048; 85025; 85610; 85730; 93005; G0463

== ENCOUNTER 2024-03-19 13:27 | Outpatient (OUT) | payer OTHER, SELFPAY ==
--- NOTE | 2024-03-19 13:33 | XR_ITS ---
The [address] [address] Patient Name: FREDDIE ORELLANA MRN: [id number] date: 1965 Sex: F Assigned Patient Location: [facility] Current Patient Location: Accession/Order Number: [id number] Exam Date: 03/19/2024 13:35 Report Date: 03/22/2024 05:04 At the request of: JERRY MC Procedure: XR abdomen 1V EXAMINATION: XR abdomen 1V HISTORY: Ureteral Stone ; left kidney stone COMPARISON: No relevant comparison available. FINDINGS: KIDNEY/URETER - RIGHT: No visible renal or ureteral calcifications. KIDNEY/URETER - LEFT: 3 mm calcification projecting just caudal to the left sacroiliac joint; nonspecific. PELVIS: No significant phleboliths. BOWEL: No abnormal dilation or deviation. BONES: No acute abnormality. OTHER: Negative. No abnormal gaseous collections. XR/XR abdomen 1V IMPRESSION: 1. Possible small distal left ureteral stone. No comparison studies. Electronically authenticated by: LOIS DIALLO Date: 03/22/2024 05:04
== END 2024-03-19 13:28 | disposition home or self-care (01) ==
PROVIDERS: PCP Nurse Practitioner Family; Visit Provider Urology
DX: N20.1 Calculus of ureter (principal)
CPT/HCPCS: 74018

== ENCOUNTER 2025-05-04 07:01 | Outpatient (RCR) | payer OTHER, SELFPAY | END 2025-05-26 11:19 | disposition home or self-care (01) | LOC: PT 07:01 | PROVIDERS: PCP Nurse Practitioner Family; Visit Provider Physician Assistant | DX: M54.2 Cervicalgia (principal); G89.29 Other chronic pain; M25.512 Pain in left shoulder; M54.50 Low back pain, unspecified; M54.30 Sciatica, unspecified side | CPT/HCPCS: 97110; 97112; 97140; 97163 ==